=== PATIENT | male | born 1985 | race Two or more races ===

== ENCOUNTER 2023-05-29 07:58 | Inpatient (IN) | payer MEDICAID ==
[~2023-05-29] VITALS: Ht 175.3 cm; Wt 51.6 kg
[2023-05-29 08:42] LABS: Urine Bacteria NONE SEEN /hpf (None Seen); Urine Blood 1+ /uL (Negative); Urine Budding Yeast OCCASIONAL /hpf (None Seen); Urine Clarity Clear (Clear); Urine Color Colorless (Yellow); Urine Hyaline Cast FEW /lpf (0 - 2); Urine Protein, UAD 2+ (Negative); Urine Urobilinogen Normal (Negative); Urine WBC 35 /hpf (0 - 3); Urine WBC Clumps PRESENT /hpf (None Seen)
[2023-05-29 08:51] LABS: Basophils # (auto) 0.1 10 ^3/uL (0-0.2); Basophils % (auto) 1.4 % (0.0-2.0); Eosinophils # (auto) 0.1 10 ^3/uL (0-0.8); Hematocrit 27.7 % (41.0-53.0); Hemoglobin 9.1 g/dL (13.5-17.5); Lymphocytes # (auto) 1.6 10 ^3/uL (0.4-5.4); Mean Corpuscular Hemoglobin 27.7 pg (28.0-32.0); Mean Corpuscular Hgb Conc. 32.9 g/dL (32.0-36.0); Mean Corpuscular Volume 84.2 fL (80.0-100.0); Monocytes # (auto) 0.4 10 ^3/uL (0-1.3); Monocytes % (auto) 5.9 % (0.0-12.0); Neutrophils # (auto) 5.4 10 ^3/uL (1.6-8.6); Neutrophils % (auto) 70.7 % (37.0-80.0); Red Blood Cells 3.28 10^6/uL (4.5-5.90); Red Cell Distribution Width 15.6 % (11.8-14.3); White Blood Cell 7.6 10^3/uL (4.4-10.8)
[2023-05-29 09:04] LABS: Alanine Aminotransferase 43 U/L (7-40); Albumin 3.4 g/dL (3.2-4.8); Alkaline Phosphatase 109 U/L (46-116); Anion Gap 2.3 (5-15); Aspartate Aminotransferase 45 U/L (13-40); BUN/Creatinine Ratio 12.2 (10.0-20.0); Bilirubin, Total 0.4 mg/dL (0.2-1.0); Blood Urea Nitrogen 18 mg/dL (9-23); Calcium 8.5 mg/dL (8.5-10.1); Carbon Dioxide 27.7 mmol/L (20-30); Chloride 104 mmol/L (98-107); Glucose 284 mg/dL (74-106); Sodium 134 mmol/L (136-145); Total Protein 6.5 g/dL (5.7-8.2)
[2023-05-29] MEDS ORDERED: cefTRIAXone 1GM/50ML D5W 50 ML IV ONE (11:00)
[2023-05-29] MEDS ORDERED: CALCIUM GLUC 1,000mg/50ml-NS 50 ML IV ONE ×3 (11:00→15:45)
[2023-05-29] MEDS ORDERED: SODIUM BICARBONATE 8.4 % INJ 50ML VIAL IV ONE ×2 (11:00→11:17)
[2023-05-29 11:39] LABS: INR 1.11 (0.9-1.15); Partial Thromboplastin Time 31.9 SEC (24.5-34.5); Prothrombin Time 11.6 sec (9.3-11.8)
[2023-05-29 11:40] VITALS: PULSE 86
[2023-05-29] MEDS ORDERED: DEXTROSE (50%) 50ML SYRG IV PRN (12:15)
[2023-05-29] MEDS ORDERED: ACETAMINOPHEN 325 MG TAB PO PRN (12:15)
[2023-05-29] MEDS ORDERED: [UNRECOGNIZED DRUG - CODE] (12:20)
[2023-05-29] MEDS ORDERED: QUET100T47 PO ×2 (12:20)
[2023-05-29] MEDS ORDERED: INSU100I52 SC ×2 (12:20)
[2023-05-29] MEDS ORDERED: ARIP10TA29 PO ×2 (12:20)
[2023-05-29] MEDS ORDERED: GABA-339 PO ×2 (12:20)
[2023-05-29] MEDS ORDERED: metroNIDAZOLE 500MG/100ML 100 ML IV ONE (12:45)
[2023-05-29] MEDS: SODIUM CHLORIDE 0.9% 1,000 ML IV SCH ×2 (12:45→22:28)
[2023-05-29] MEDS: MORPHINE SULFATE INJ 2 MG/ml SYRG IV PRN ×2 (12:57→20:33)
[2023-05-29] MEDS: METOCLOPRAMIDE HCL 5MG/ml INJ 2ml VIAL IV PRN ×2 (13:00→17:39)
[2023-05-29] MEDS: GABAPENTIN 300 MG CAP PO SCH ×2 (14:33→22:28)
[2023-05-29] MEDS ORDERED: SODIUM BICARBONATE 8.4% INJ 50ML SYRINGE IV ONE (15:45)
[2023-05-29] MEDS ORDERED: FUROSEMIDE 20 MG/2 ML VIAL IV ONE (15:45)
[2023-05-29] MEDS ORDERED: InsuLIN REG 1unit/0.01ml Soln (100units/ml) IV ONE (15:45)
[2023-05-29] MEDS ORDERED: ALBUTEROL SULF 2.5 MG/0.5ML(0.5%) NEB SOLN NEB ONE (15:45)
[2023-05-29] MEDS ORDERED: SODIUM ZIRCONIUM CYCL 10 GM PAK PO ONE (15:45)
[2023-05-29] MEDS ORDERED: DEXTROSE (50%) 50ML SYRG IV ONE (15:45)
[2023-05-29] MEDS: HYDROcodone-ACET 5/325MG TAB PO PRN ×2 (16:08→22:28)
[2023-05-29] MEDS ORDERED: hydrALAZINE HCL 20 MG/ML VL IV PRN (16:15)
[2023-05-29] MEDS ORDERED: hydrALAZINE HCL 20 MG/ML VL ONE (16:19)
[2023-05-29] MEDS: InsuLIN REG 1unit/0.01ml Soln (100units/ml) SC SCH ×2 (16:21→22:29)
[2023-05-29] MEDS: ACCU-CHEK COMFORT CURVE STRIP VI SCH ×2 (16:21→22:28)
[2023-05-29] MEDS ORDERED: SODIUM CHLORIDE 0.9% 1,000 ML IV ONE (19:00)
[2023-05-29 19:35] VITALS: PULSE 97; RESP 15; O2SAT 98
[2023-05-29] MEDS: metroNIDAZOLE 500MG/100ML 100 ML IV SCH (22:28)
[2023-05-30] VITALS (11 sets, daily range): BP systolic 132–149; BP diastolic 83–103; PULSE 76–105; RESP 16–18; TEMP 97.4–98.3; O2SAT 98–99
[2023-05-30] MEDS: MORPHINE SULFATE INJ 2 MG/ml SYRG IV PRN ×5 (00:41→20:26)
[2023-05-30] MEDS ORDERED: PERCOT PO (01:53)
[2023-05-30] MEDS: HYDROcodone-ACET 5/325MG TAB PO PRN ×5 (03:46→22:55)
[2023-05-30] MEDS: METOCLOPRAMIDE HCL 5MG/ml INJ 2ml VIAL IV PRN ×3 (03:48→18:29)
[2023-05-30 05:39] LABS: Basophils # (auto) 0.1 10 ^3/uL (0-0.2); Eosinophils # (auto) 0 10 ^3/uL (0-0.8); Eosinophils % (auto) 0.5 % (0.0-7.0); Hematocrit 25.1 % (41.0-53.0); Hemoglobin 8.5 g/dL (13.5-17.5); Lymphocytes # (auto) 1.5 10 ^3/uL (0.4-5.4); Lymphocytes % (auto) 17.6 % (10.0-50.0); Mean Corpuscular Hemoglobin 28.1 pg (28.0-32.0); Mean Corpuscular Hgb Conc. 33.9 g/dL (32.0-36.0); Mean Corpuscular Volume 82.9 fL (80.0-100.0); Monocytes # (auto) 0.5 10 ^3/uL (0-1.3); Monocytes % (auto) 5.8 % (0.0-12.0); Neutrophils # (auto) 6.4 10 ^3/uL (1.6-8.6); Neutrophils % (auto) 75.1 % (37.0-80.0); Red Blood Cells 3.03 10^6/uL (4.5-5.90); Red Cell Distribution Width 15.6 % (11.8-14.3); White Blood Cell 8.6 10^3/uL (4.4-10.8)
[2023-05-30] MEDS: metroNIDAZOLE 500MG/100ML 100 ML IV SCH (05:40)
[2023-05-30] MEDS: GABAPENTIN 300 MG CAP PO SCH ×3 (05:40→21:55)
[2023-05-30 05:49] LABS: Alanine Aminotransferase 33 U/L (7-40); Albumin 3.1 g/dL (3.2-4.8); Alkaline Phosphatase 98 U/L (46-116); Anion Gap 5.5 (5-15); Aspartate Aminotransferase 24 U/L (13-40); BUN/Creatinine Ratio 12.9 (10.0-20.0); Bilirubin, Total 0.3 mg/dL (0.2-1.0); Blood Urea Nitrogen 17 mg/dL (9-23); Calcium 8.3 mg/dL (8.5-10.1); Carbon Dioxide 26.5 mmol/L (20-30); Chloride 108 mmol/L (98-107); Sodium 140 mmol/L (136-145)
[2023-05-30 05:50] LABS: Total Protein 5.9 g/dL (5.7-8.2)
[2023-05-30 05:55] LABS: Glucose 149 mg/dL (74-106)
[2023-05-30] MEDS: ACCU-CHEK COMFORT CURVE STRIP VI SCH ×7 (06:13→22:00)
[2023-05-30] MEDS: InsuLIN REG 1unit/0.01ml Soln (100units/ml) SC SCH ×4 (06:17→22:03)
[2023-05-30] MEDS: SODIUM CHLORIDE 0.9% 1,000 ML IV SCH ×2 (08:53→18:32)
[2023-05-30] MEDS ORDERED: cefTRIAXone 1GM/50ML D5W 50 ML IV SCH (09:00)
[2023-05-30] MEDS ORDERED: DEXTROSE (50%) 50ML SYRG IV PRN (10:00)
[2023-05-30] MEDS ORDERED: ERTAPENEM SOD INJ 1 GM in SODIUM CHL 0.9% 50 ML IV ONE (10:00)
[2023-05-30] MEDS: ENOXAPARIN SOD 40 MG/0.4 ML SYRINGE SC SCH (10:33)
[2023-05-30] MEDS: QUEtiapine FUMARATE 100 MG TAB PO SCH (10:34)
[2023-05-31] VITALS (7 sets, daily range): BP systolic 124–149; BP diastolic 77–106; PULSE 76–93; RESP 16–18; TEMP 97.4–98.4; O2SAT 97–99
[2023-05-31] MEDS: METOCLOPRAMIDE HCL 5MG/ml INJ 2ml VIAL IV PRN ×2 (00:46→06:56)
[2023-05-31] MEDS: MORPHINE SULFATE INJ 2 MG/ml SYRG IV PRN ×5 (00:48→21:27)
[2023-05-31] MEDS: SODIUM CHLORIDE 0.9% 1,000 ML IV SCH ×2 (00:53→10:31)
[2023-05-31] MEDS: GABAPENTIN 300 MG CAP PO SCH ×3 (05:08→21:38)
[2023-05-31] MEDS: ACCU-CHEK COMFORT CURVE STRIP VI SCH ×8 (06:04→21:39)
[2023-05-31] MEDS: InsuLIN REG 1unit/0.01ml Soln (100units/ml) SC SCH ×4 (06:04→21:39)
[2023-05-31 06:25] LABS: Anion Gap 3.3 (5-15); Carbon Dioxide 27.7 mmol/L (20-30); Chloride 108 mmol/L (98-107); Potassium 4.2 mmol/L (3.5-5.1); Sodium 139 mmol/L (136-145)
[2023-05-31 06:26] LABS: Calcium 7.9 mg/dL (8.5-10.1)
[2023-05-31 06:31] LABS: BUN/Creatinine Ratio 12.7 (10.0-20.0); Blood Urea Nitrogen 16 mg/dL (9-23); Glucose 80 mg/dL (74-106)
[2023-05-31] MEDS: HYDROcodone-ACET 5/325MG TAB PO PRN ×3 (06:53→17:23)
[2023-05-31 07:08] LABS: Basophils # (auto) 0.1 10 ^3/uL (0-0.2); Eosinophils # (auto) 0.1 10 ^3/uL (0-0.8); Hemoglobin 8.3 g/dL (13.5-17.5); Lymphocytes # (auto) 1.9 10 ^3/uL (0.4-5.4); Monocytes # (auto) 0.5 10 ^3/uL (0-1.3)
[2023-05-31 07:12] LABS: Basophils % (auto) 1.4 % (0.0-2.0); Eosinophils % (auto) 1.7 % (0.0-7.0); Hematocrit 24.8 % (41.0-53.0); Lymphocytes % (auto) 29.7 % (10.0-50.0); Mean Corpuscular Hemoglobin 27.6 pg (28.0-32.0); Mean Corpuscular Hgb Conc. 33.6 g/dL (32.0-36.0); Mean Corpuscular Volume 82.3 fL (80.0-100.0); Monocytes % (auto) 7.1 % (0.0-12.0); Neutrophils # (auto) 3.8 10 ^3/uL (1.6-8.6); Neutrophils % (auto) 60.1 % (37.0-80.0); Red Blood Cells 3.01 10^6/uL (4.5-5.90); Red Cell Distribution Width 15.6 % (11.8-14.3); White Blood Cell 6.4 10^3/uL (4.4-10.8)
[2023-05-31 09:44] LABS: Hepatitis B Surface Antigen Negative (Negative)
[2023-05-31] MEDS: ERTAPENEM SOD INJ 1 GM in SODIUM CHL 0.9% 50 ML IV SCH (10:00)
[2023-05-31 10:05] LABS: Hepatitis C Antibody Negative (Negative)
[2023-05-31] MEDS: ENOXAPARIN SOD 40 MG/0.4 ML SYRINGE SC SCH (10:21)
[2023-05-31] MEDS: QUEtiapine FUMARATE 100 MG TAB PO SCH (10:21)
[2023-06-01] MEDS: HYDROcodone-ACET 5/325MG TAB PO PRN ×2 (00:02→06:31)
[2023-06-01] MEDS: METOCLOPRAMIDE HCL 5MG/ml INJ 2ml VIAL IV PRN (02:26)
[2023-06-01] MEDS: MORPHINE SULFATE INJ 2 MG/ml SYRG IV PRN ×2 (02:28→09:16)
[2023-06-01 05:00] VITALS: BP 151/106; PULSE 86; RESP 19; TEMP 97.6; O2SAT 99
[2023-06-01] MEDS: GABAPENTIN 300 MG CAP PO SCH (06:31)
[2023-06-01] MEDS: ACCU-CHEK COMFORT CURVE STRIP VI SCH ×4 (06:31→12:00)
[2023-06-01] MEDS: InsuLIN REG 1unit/0.01ml Soln (100units/ml) SC SCH ×2 (06:31→12:12)
[2023-06-01 09:00] VITALS: BP 128/93; PULSE 82; RESP 16; TEMP 98; O2SAT 98
[2023-06-01] MEDS: ERTAPENEM SOD INJ 1 GM in SODIUM CHL 0.9% 50 ML IV SCH (09:15)
[2023-06-01] MEDS: ENOXAPARIN SOD 40 MG/0.4 ML SYRINGE SC SCH (09:15)
[2023-06-01] MEDS: QUEtiapine FUMARATE 100 MG TAB PO SCH (09:15)
[2023-06-01] MEDS ORDERED: FLUC200T50 PO (09:30)
[2023-06-01] MEDS ORDERED: LEVO500T91 PO (09:30)
[2023-06-01 10:00] VITALS: BP 124/69; PULSE 75; RESP 17
[2023-06-01] MEDS: SODIUM CHLORIDE 0.9% 1,000 ML IV SCH (12:40)
[2023-06-12] MEDS ORDERED: ERGO1CAP23 PO ×2 (13:54)
[2023-06-12] MEDS ORDERED: FERR1TAB36 PO ×2 (13:54)
== END 2023-06-01 13:05 | disposition home or self-care (01) | DRG 466 ==
LOC: ER 07:58 → OVERFLOW 12:16 → CENTRAL 22:27 → TELE-CENTR 05-30 17:12 → CENTRAL 05-31 10:16
PROVIDERS: ADMIT Nurse Practitioner Family; ATTEND Internal Medicine
DX: T83.511A Infection and inflammatory reaction due to indwelling urethral catheter, initial encounter (principal); E10.42 Type 1 diabetes mellitus with diabetic polyneuropathy; E44.0 Moderate protein-calorie malnutrition; I50.32 Chronic diastolic (congestive) heart failure; E86.0 Dehydration; I11.0 Hypertensive heart disease with heart failure; D64.9 Anemia, unspecified; E10.65 Type 1 diabetes mellitus with hyperglycemia; E87.5 Hyperkalemia; N39.0 Urinary tract infection, site not specified; Z79.4 Long term (current) use of insulin; Z68.1 Body mass index [BMI] 19.9 or less, adult
CPT/HCPCS: 36415; 73630; 74176; 80048; 80053; 81001; 82962; 83036; 83880; 83930; 84132; 85025; 85610; 85730; 86803; 87045; 87081; 87086; 87088; 87177; 87340; 87427; 87493; 93306; 94640; 96365; 96367; 96368; 96375; 97110; 97116; 97163; 97530; 99291; G0378; J0696; J1335; J1815; J3490

== ENCOUNTER 2023-06-04 07:10 | Emergency (ER) | payer MEDICAID ==
[~2023-06-04] VITALS: Ht 175.3 cm; Wt 52.4 kg
[~2023-06-04 07:10] MED LIST: ARIP10TA29 PO; FLUC200T50 PO; GABA-339 PO; INSU100I52 SC; LEVO500T91 PO; PERCOT PO; QUET100T47 PO; [UNRECOGNIZED DRUG - CODE]
[2023-06-04 07:23] VITALS: BP 123/89; PULSE 95; RESP 20; O2SAT 97
[2023-06-04 07:52] LABS: Urine Bacteria NONE SEEN /hpf (None Seen); Urine Blood 2+ /uL (Negative); Urine Clarity Clear (Clear); Urine Color Straw (Yellow); Urine Hyaline Cast FEW /lpf (0 - 2); Urine Protein, UAD 3+ (Negative); Urine Urobilinogen Normal (Negative); Urine WBC 11 /hpf (0 - 3)
[2023-06-04 08:28] LABS: Basophils # (auto) 0.1 10 ^3/uL (0-0.2); Eosinophils # (auto) 0.1 10 ^3/uL (0-0.8); Eosinophils % (auto) 1.2 % (0.0-7.0); Hematocrit 29.6 % (41.0-53.0); Hemoglobin 9.5 g/dL (13.5-17.5); Lymphocytes # (auto) 1.5 10 ^3/uL (0.4-5.4); Lymphocytes % (auto) 18.8 % (10.0-50.0); Mean Corpuscular Hemoglobin 26.9 pg (28.0-32.0); Mean Corpuscular Hgb Conc. 32.2 g/dL (32.0-36.0); Mean Corpuscular Volume 83.3 fL (80.0-100.0); Monocytes # (auto) 0.4 10 ^3/uL (0-1.3); Monocytes % (auto) 5.3 % (0.0-12.0); Neutrophils # (auto) 5.9 10 ^3/uL (1.6-8.6); Neutrophils % (auto) 73.7 % (37.0-80.0); Nucleated Red Blood Cells % 0.1 %; Red Blood Cells 3.55 10^6/uL (4.5-5.90); Red Cell Distribution Width 15.7 % (11.8-14.3)
[2023-06-04 08:47] LABS: Alanine Aminotransferase 66 U/L (7-40); Albumin 3.4 g/dL (3.2-4.8); Alkaline Phosphatase 121 U/L (46-116); Anion Gap 0.4 (5-15); Aspartate Aminotransferase 125 U/L (13-40); BUN/Creatinine Ratio 17.6 (10.0-20.0); Bilirubin, Total 0.6 mg/dL (0.2-1.0); Blood Urea Nitrogen 24 mg/dL (9-23); Calcium 8.9 mg/dL (8.5-10.1); Carbon Dioxide 29.6 mmol/L (20-30); Chloride 102 mmol/L (98-107); Total Protein 6.7 g/dL (5.7-8.2)
[2023-06-04 08:51] LABS: Sodium 132 mmol/L (136-145)
[2023-06-04 08:55] LABS: Glucose 407 mg/dL (74-106); Potassium 5.8 mmol/L (3.5-5.1)
[2023-06-04] MEDS ORDERED: SODIUM CHLORIDE 0.9% 1,000 ML IV ONE ×2 (11:45)
[2023-06-04] MEDS ORDERED: cefTRIAXone 1GM/50ML D5W 50 ML IV ONE (11:45)
[2023-06-04] MEDS ORDERED: InsuLIN REG 1unit/0.01ml Soln (100units/ml) IV ONE (11:45)
== END 2023-06-04 14:15 | disposition left against medical advice (07) ==
LOC: ER 07:10
DX: E11.65 Type 2 diabetes mellitus with hyperglycemia (principal); N39.0 Urinary tract infection, site not specified; E87.5 Hyperkalemia; M79.605 Pain in left leg; M79.604 Pain in right leg; I11.0 Hypertensive heart disease with heart failure; I50.9 Heart failure, unspecified; F15.90 Other stimulant use, unspecified, uncomplicated; Z79.1 Long term (current) use of non-steroidal anti-inflammatories (NSAID); Z79.4 Long term (current) use of insulin; Z79.899 Other long term (current) drug therapy
CPT/HCPCS: 36415; 80053; 81001; 83880; 85025; 87086

== ENCOUNTER 2023-06-04 15:58 | Inpatient (IN) | payer MEDICAID ==
[~2023-06-04] VITALS: Ht 175.3 cm; Wt 57.3 kg
[2023-06-04 16:42] VITALS: PULSE 87; RESP 9; O2SAT 96
[2023-06-04] MEDS ORDERED: FUROSEMIDE 20 MG/2 ML VIAL IV ONE (17:00)
[2023-06-04] MEDS ORDERED: SODIUM CHLORIDE 0.9% 1,000 ML IV ONE ×2 (17:00)
[2023-06-04] MEDS ORDERED: INSULIN LANTUS (GLARGINE) 1 /0.01ml (100units/ml) SC ONE (17:00)
[2023-06-04] MEDS ORDERED: ALBUTEROL SULF 2.5 MG/0.5ML(0.5%) NEB SOLN NEB ONE (17:00)
[2023-06-04] MEDS ORDERED: SODIUM ZIRCONIUM CYCL 10 GM PAK PO ONE (17:00)
[2023-06-04] MEDS ORDERED: CALCIUM GLUC 1,000mg/50ml-NS 50 ML IV ONE (17:00)
[2023-06-04] MEDS ORDERED: InsuLIN R (HUMAN) 100 UNITS in SODIUM CHL 0.9% 99 ML IV SCH (17:00)
[2023-06-04] MEDS ORDERED: SODIUM BICARBONATE 8.4% INJ 50ML SYRINGE IV ONE (17:00)
[2023-06-04 17:01] LABS: Base Excess 4.8 mmol/L (-2.0-2.0)
[2023-06-04 17:05] LABS: Basophils # (auto) 0.1 10 ^3/uL (0-0.2); Basophils % (auto) 0.9 % (0.0-2.0); Eosinophils # (auto) 0.1 10 ^3/uL (0-0.8); Eosinophils % (auto) 1.3 % (0.0-7.0); Hematocrit 26.1 % (41.0-53.0); Hemoglobin 8.6 g/dL (13.5-17.5); Lymphocytes % (auto) 24.9 % (10.0-50.0); Mean Corpuscular Hgb Conc. 32.7 g/dL (32.0-36.0); Mean Corpuscular Volume 82.7 fL (80.0-100.0); Monocytes # (auto) 0.6 10 ^3/uL (0-1.3); Monocytes % (auto) 7.5 % (0.0-12.0); Neutrophils # (auto) 5.2 10 ^3/uL (1.6-8.6); Neutrophils % (auto) 65.4 % (37.0-80.0); Red Blood Cells 3.16 10^6/uL (4.5-5.90); Red Cell Distribution Width 15.4 % (11.8-14.3); White Blood Cell 7.9 10^3/uL (4.4-10.8)
[2023-06-04 17:23] LABS: Alanine Aminotransferase 54 U/L (7-40); Albumin 3.3 g/dL (3.2-4.8); Alkaline Phosphatase 122 U/L (46-116); Anion Gap 1.4 (5-15); Aspartate Aminotransferase 78 U/L (13-40); BUN/Creatinine Ratio 17.6 (10.0-20.0); Blood Urea Nitrogen 24 mg/dL (9-23); Calcium 8.6 mg/dL (8.7-10.4); Carbon Dioxide 29.6 mmol/L (20-30); Chloride 101 mmol/L (98-107); Glucose 342 mg/dL (74-106); Sodium 132 mmol/L (136-145)
[2023-06-04 17:24] LABS: Bilirubin, Total 0.5 mg/dL (0.2-1.0); Total Protein 6.3 g/dL (5.7-8.2)
[2023-06-04] MEDS ORDERED: ACCU-CHEK COMFORT CURVE STRIP VI SCH ×2 (18:00→22:00)
[2023-06-04 18:25] LABS: Potassium 5.6 mmol/L (3.5-5.1)
[2023-06-04 19:20] VITALS: PULSE 102; RESP 14; O2SAT 98
[2023-06-04] MEDS ORDERED: NITROGLYCERIN 0.4 MG SL TAB SL PRN (19:45)
[2023-06-04] MEDS ORDERED: ACETAMINOPHEN 325 MG TAB PO PRN (19:45)
[2023-06-04] MEDS ORDERED: MORPHINE SULFATE INJ 2 MG/ml SYRG IV PRN (19:45)
[2023-06-04] MEDS: OXYCODONE W/ ACETAMINOPHEN 5/325MG TABLET PO PRN (21:02)
[2023-06-04] MEDS: GABAPENTIN 300 MG CAP PO SCH (23:17)
[2023-06-04] MEDS: InsuLIN REG 1unit/0.01ml Soln (100units/ml) SC SCH (23:18)
[2023-06-05] MEDS: ONDANSETRON HCL 4 MG/2 ML VIAL IV PRN ×2 (00:09→04:21)
[2023-06-05] MEDS: MORPHINE SULFATE 4 MG/ML SYR/VIAL IV PRN ×5 (00:12→21:20)
[2023-06-05] MEDS: GABAPENTIN 300 MG CAP PO SCH ×3 (07:00→21:20)
[2023-06-05 07:07] LABS: Alanine Aminotransferase 53 U/L (7-40); Alkaline Phosphatase 102 U/L (46-116); BUN/Creatinine Ratio 16.8 (10.0-20.0); Blood Urea Nitrogen 20 mg/dL (9-23); Calcium 8.7 mg/dL (8.5-10.1); Chloride 103 mmol/L (98-107); Potassium 4.3 mmol/L (3.5-5.1); Sodium 138 mmol/L (136-145)
[2023-06-05 07:09] LABS: Aspartate Aminotransferase 63 U/L (13-40); Bilirubin, Total 0.5 mg/dL (0.2-1.0); Total Protein 5.8 g/dL (5.7-8.2)
[2023-06-05 07:12] LABS: Glucose 212 mg/dL (74-106)
[2023-06-05 07:26] LABS: Basophils # (auto) 0.1 10 ^3/uL (0-0.2); Eosinophils # (auto) 0.1 10 ^3/uL (0-0.8); Hemoglobin 7.6 g/dL (13.5-17.5); Lymphocytes % (auto) 29.8 % (10.0-50.0); Monocytes # (auto) 0.5 10 ^3/uL (0-1.3)
[2023-06-05 07:27] LABS: Eosinophils % (auto) 1.4 % (0.0-7.0); Hematocrit 22.1 % (41.0-53.0); Mean Corpuscular Hemoglobin 28.3 pg (28.0-32.0); Mean Corpuscular Hgb Conc. 34.5 g/dL (32.0-36.0); Mean Corpuscular Volume 82.3 fL (80.0-100.0); Monocytes % (auto) 7.4 % (0.0-12.0); Neutrophils % (auto) 60.4 % (37.0-80.0); Nucleated Red Blood Cells % 0.1 %; Red Blood Cells 2.69 10^6/uL (4.5-5.90); Red Cell Distribution Width 15.2 % (11.8-14.3); White Blood Cell 6.6 10^3/uL (4.4-10.8)
[2023-06-05 07:35] VITALS: PULSE 81; RESP 10; O2SAT 98
[2023-06-05] MEDS: InsuLIN REG 1unit/0.01ml Soln (100units/ml) SC SCH ×4 (07:55→21:46)
[2023-06-05] MEDS ORDERED: levoFLOXacin 500MG 100 ML IV SCH (10:00)
[2023-06-05] MEDS: FLUCONAZOLE 200MG/100ML 100 ML IV SCH (10:34)
[2023-06-05] MEDS: FUROSEMIDE 20 MG/2 ML VIAL IV SCH (10:36)
[2023-06-05] MEDS: PANTOPRAZOLE 40 MG TAB PO SCH ×2 (10:37→21:20)
[2023-06-05] MEDS: QUEtiapine FUMARATE 100 MG TAB PO SCH (10:37)
[2023-06-05] MEDS: INSULIN LANTUS (GLARGINE) 1 /0.01ml (100units/ml) SC SCH (10:41)
[2023-06-05] MEDS ORDERED: cefTRIAXone 1GM/50ML D5W 50 ML IV ONE (13:15)
[2023-06-05] MEDS ORDERED: LACTULOSE 20Gm/30ML SOLN PO ONE (13:15)
[2023-06-05 13:46] LABS: Urine Bacteria NONE SEEN /hpf (None Seen); Urine Blood 1+ /uL (Negative); Urine Clarity Clear (Clear); Urine Protein, UAD 2+ (Negative); Urine Specific Gravity 1.007 (1.001-1.035); Urine Urobilinogen Normal (Negative); Urine WBC 13 /hpf (0 - 3)
[2023-06-05 13:59] LABS: Urine Color Straw (Yellow)
[2023-06-05 14:03] LABS: Amphetamine Screen, Urine Neg (NEGATIVE); Barbiturate Scree,Urine Neg (NEGATIVE); Benzodiazephine Screen, Urine Neg (NEGATIVE); Cannabinoid Screen, Urine Pos (NEGATIVE); Cocaine Screen, Urine Neg (NEGATIVE); Opiate Scree,Urine Neg (NEGATIVE); Phencyclidine Screen, Urine Neg (NEGATIVE)
[2023-06-05 14:44] LABS: Thyroid Stimulating Hormone 3.92 uIU/mL (0.55-4.78)
[2023-06-05 14:46] LABS: % Iron Saturation 12.8 % (20-55)
[2023-06-05] MEDS ORDERED: NOREPINEPHRINE 8 MG/250ML KIT 250 ML IV SCH (15:00)
[2023-06-05] MEDS ORDERED: NOREPINEPHRINE 8 MG/250ML KIT 250 ML IV ONE (15:03)
[2023-06-05] MEDS ORDERED: SODIUM CHLORIDE 0.9% 500 ML IV ONE (15:30)
[2023-06-05] MEDS: DEXTROSE (50%) 50ML SYRG IV PRN (19:42)
[2023-06-05 20:58] VITALS: PULSE 76; RESP 18; O2SAT 96
[2023-06-05 22:00] VITALS: BP 109/70; PULSE 81; RESP 20; O2SAT 99
[2023-06-06] VITALS (9 sets, daily range): BP systolic 82–137; BP diastolic 50–97; PULSE 80–97; RESP 18–20; TEMP 97.5–99.6; O2SAT 94–99
[2023-06-06] MEDS: OXYCODONE W/ ACETAMINOPHEN 5/325MG TABLET PO PRN ×3 (02:20→18:46)
[2023-06-06] MEDS: MORPHINE SULFATE 4 MG/ML SYR/VIAL IV PRN ×2 (04:37→10:01)
[2023-06-06 04:49] LABS: Basophils # (auto) 0 10 ^3/uL (0-0.2); Basophils % (auto) 0.4 % (0.0-2.0); Eosinophils # (auto) 0.1 10 ^3/uL (0-0.8); Hemoglobin 8.3 g/dL (13.5-17.5); Lymphocytes # (auto) 0.4 10 ^3/uL (0.4-5.4); Monocytes # (auto) 0.4 10 ^3/uL (0-1.3)
[2023-06-06 04:52] LABS: Eosinophils % (auto) 0.8 % (0.0-7.0); Hematocrit 24.7 % (41.0-53.0); Lymphocytes % (auto) 4.8 % (10.0-50.0); Mean Corpuscular Hgb Conc. 33.7 g/dL (32.0-36.0); Mean Corpuscular Volume 83.1 fL (80.0-100.0); Monocytes % (auto) 5.1 % (0.0-12.0); Neutrophils # (auto) 7.3 10 ^3/uL (1.6-8.6); Neutrophils % (auto) 88.9 % (37.0-80.0); Red Blood Cells 2.97 10^6/uL (4.5-5.90); Red Cell Distribution Width 15.2 % (11.8-14.3); White Blood Cell 8.3 10^3/uL (4.4-10.8)
[2023-06-06 05:06] LABS: Alanine Aminotransferase 46 U/L (7-40); Alkaline Phosphatase 96 U/L (46-116); Anion Gap 2.7 (5-15); Aspartate Aminotransferase 44 U/L (13-40); BUN/Creatinine Ratio 17.8 (10.0-20.0); Blood Urea Nitrogen 21 mg/dL (9-23); Calcium 8.2 mg/dL (8.5-10.1); Carbon Dioxide 28.3 mmol/L (20-30); Chloride 106 mmol/L (98-107); Cholesterol 150 mg/dL (< 200); Glucose 82 mg/dL (74-106); HDL Cholesterol 67 mg/dL (40-59); LDL Cholesterol 65 mg/dL (< 100); Magnesium 1.6 mg/dL (1.6-2.6); Potassium 4.8 mmol/L (3.5-5.1); Sodium 137 mmol/L (136-145); Triglycerides 52 mg/dL (< 150)
[2023-06-06 05:07] LABS: Bilirubin, Total 0.4 mg/dL (0.2-1.0); Total Protein 5.8 g/dL (5.7-8.2)
[2023-06-06] MEDS: GABAPENTIN 300 MG CAP PO SCH ×3 (06:25→21:25)
[2023-06-06] MEDS: InsuLIN REG 1unit/0.01ml Soln (100units/ml) SC SCH ×4 (06:27→21:26)
[2023-06-06] MEDS: ONDANSETRON HCL 4 MG/2 ML VIAL IV PRN ×2 (09:59→23:25)
[2023-06-06] MEDS: cefTRIAXone 1GM/50ML D5W 50 ML IV SCH (09:59)
[2023-06-06] MEDS: PANTOPRAZOLE 40 MG TAB PO SCH ×3 (10:00→21:26)
[2023-06-06] MEDS: FUROSEMIDE 20 MG/2 ML VIAL IV SCH (10:00)
[2023-06-06] MEDS: QUEtiapine FUMARATE 100 MG TAB PO SCH (10:01)
[2023-06-06] MEDS ORDERED: MAGNESIUM OXIDE 400 MG TAB PO ONE (11:00)
[2023-06-06] MEDS: FLUCONAZOLE 200MG/100ML 100 ML IV SCH (11:24)
[2023-06-06] MEDS: INSULIN LANTUS (GLARGINE) 1 /0.01ml (100units/ml) SC SCH (12:08)
[2023-06-06] MEDS ORDERED: SODIUM CHLORIDE 0.9% 1,000 ML IV ONE (14:30)
[2023-06-06] MEDS ORDERED: ALBUMIN 25% 100 ML IV ONE (14:30)
[2023-06-06] MEDS: MAGNESIUM OXIDE 400 MG TAB PO SCH (21:26)
[2023-06-07] VITALS (9 sets, daily range): BP systolic 99–121; BP diastolic 63–80; PULSE 71–96; RESP 18–21; TEMP 97.4–98.2; O2SAT 95–100
[2023-06-07] MEDS: GABAPENTIN 300 MG CAP PO SCH ×3 (06:08→21:06)
[2023-06-07] MEDS: InsuLIN REG 1unit/0.01ml Soln (100units/ml) SC SCH ×4 (06:09→21:06)
[2023-06-07] MEDS: OXYCODONE W/ ACETAMINOPHEN 5/325MG TABLET PO PRN ×2 (06:50→22:26)
[2023-06-07] MEDS: cefTRIAXone 1GM/50ML D5W 50 ML IV SCH (08:19)
[2023-06-07] MEDS: MAGNESIUM OXIDE 400 MG TAB PO SCH ×2 (10:28→21:05)
[2023-06-07] MEDS: FLUCONAZOLE 100 MG TAB PO SCH (10:28)
[2023-06-07] MEDS: PANTOPRAZOLE 40 MG TAB PO SCH ×2 (10:28→21:06)
[2023-06-07] MEDS: QUEtiapine FUMARATE 100 MG TAB PO SCH (10:28)
[2023-06-07] MEDS: FUROSEMIDE 20 MG/2 ML VIAL IV SCH (10:29)
[2023-06-07] MEDS: INSULIN LANTUS (GLARGINE) 1 /0.01ml (100units/ml) SC SCH (10:49)
[2023-06-07 15:18] LABS: Hepatitis B Surface Antigen Negative (Negative)
[2023-06-07 15:39] LABS: Hepatitis C Antibody Negative (Negative)
[2023-06-07] MEDS ORDERED: SODIUM FERR GLUC 62.5MG/5ML 125 MG in SODIUM CHL 0.9% 100 ML IV ONE (17:15)
[2023-06-08] VITALS (7 sets, daily range): BP systolic 117–154; BP diastolic 79–97; PULSE 75–94; RESP 16–21; TEMP 36.3; O2SAT 96–100
[2023-06-08] MEDS: DEXTROSE (50%) 50ML SYRG IV PRN ×2 (05:18→07:05)
[2023-06-08] MEDS: GABAPENTIN 300 MG CAP PO SCH ×3 (05:22→21:18)
[2023-06-08 06:07] LABS: Anion Gap 2 (5-15); Carbon Dioxide 30 mmol/L (20-30); Chloride 109 mmol/L (98-107); Potassium 5.3 mmol/L (3.5-5.1); Sodium 141 mmol/L (136-145)
[2023-06-08 06:08] LABS: Calcium 8.7 mg/dL (8.7-10.4)
[2023-06-08 06:13] LABS: BUN/Creatinine Ratio 13.3 (10.0-20.0); Blood Urea Nitrogen 22 mg/dL (9-23); Glucose 52 mg/dL (74-106)
[2023-06-08] MEDS: InsuLIN REG 1unit/0.01ml Soln (100units/ml) SC SCH ×4 (06:27→21:27)
[2023-06-08 06:42] LABS: Basophils # (auto) 0 10 ^3/uL (0-0.2); Basophils % (auto) 0.4 % (0.0-2.0); Eosinophils # (auto) 0.2 10 ^3/uL (0-0.8); Eosinophils % (auto) 2.1 % (0.0-7.0); Hematocrit 26.4 % (41.0-53.0); Hemoglobin 8.7 g/dL (13.5-17.5); Lymphocytes # (auto) 1.4 10 ^3/uL (0.4-5.4); Lymphocytes % (auto) 14.4 % (10.0-50.0); Mean Corpuscular Hemoglobin 27.8 pg (28.0-32.0); Mean Corpuscular Hgb Conc. 33.1 g/dL (32.0-36.0); Monocytes # (auto) 0.6 10 ^3/uL (0-1.3); Monocytes % (auto) 6.1 % (0.0-12.0); Neutrophils # (auto) 7.5 10 ^3/uL (1.6-8.6); Nucleated Red Blood Cells % 0.1 %; Red Blood Cells 3.14 10^6/uL (4.5-5.90); Red Cell Distribution Width 15.8 % (11.8-14.3); White Blood Cell 9.7 10^3/uL (4.4-10.8)
[2023-06-08] MEDS ORDERED: OMNIPAQUE 12mg/ml 500ml ORAL SOLUTION PO ONE (08:25)
[2023-06-08] MEDS: cefTRIAXone 1GM/50ML D5W 50 ML IV SCH (08:54)
[2023-06-08] MEDS: MAGNESIUM OXIDE 400 MG TAB PO SCH ×2 (08:56→21:18)
[2023-06-08] MEDS: PANTOPRAZOLE 40 MG TAB PO SCH ×2 (08:56→21:18)
[2023-06-08] MEDS: QUEtiapine FUMARATE 100 MG TAB PO SCH (08:56)
[2023-06-08] MEDS: FLUCONAZOLE 100 MG TAB PO SCH (08:57)
[2023-06-08] MEDS: INSULIN LANTUS (GLARGINE) 1 /0.01ml (100units/ml) SC SCH (08:57)
[2023-06-08] MEDS: OXYCODONE W/ ACETAMINOPHEN 5/325MG TABLET PO PRN ×2 (10:28→21:29)
[2023-06-08] MEDS ORDERED: HYDROmorphone HCL 2 MG/ML VL/or syr IV ONE (11:15)
[2023-06-08] MEDS ORDERED: IRON SUCROSE COMPLEX 200 MG in SODIUM CHL 0.9% 100 ML IV SCH (12:00)
[2023-06-08] MEDS: SODIUM FERR GLUC 62.5MG/5ML 125 MG in SODIUM CHL 0.9% 100 ML IV SCH (13:04)
[2023-06-08] MEDS: SODIUM CHLORIDE 0.9% 1,000 ML IV SCH ×2 (13:11→20:00)
[2023-06-08] MEDS ORDERED: IOHEXOL 300 MG/ML 100ML BOTTLE IJ ONE (14:11)
[2023-06-09] VITALS (8 sets, daily range): BP systolic 99–154; BP diastolic 66–101; PULSE 78–98; RESP 14–20; TEMP 36.4; O2SAT 95–100
[2023-06-09] MEDS: SODIUM CHLORIDE 0.9% 1,000 ML IV SCH ×3 (04:00→20:00)
[2023-06-09] MEDS: MORPHINE SULFATE INJ 2 MG/ml SYRG IV PRN ×4 (04:49→23:48)
[2023-06-09 05:48] LABS: Basophils # (auto) 0.1 10 ^3/uL (0-0.2); Basophils % (auto) 0.6 % (0.0-2.0); Eosinophils # (auto) 0.2 10 ^3/uL (0-0.8); Eosinophils % (auto) 1.7 % (0.0-7.0); Hematocrit 27.5 % (41.0-53.0); Hemoglobin 8.7 g/dL (13.5-17.5); Lymphocytes # (auto) 1.6 10 ^3/uL (0.4-5.4); Lymphocytes % (auto) 13.1 % (10.0-50.0); Mean Corpuscular Hemoglobin 27.1 pg (28.0-32.0); Mean Corpuscular Hgb Conc. 31.7 g/dL (32.0-36.0); Mean Corpuscular Volume 85.4 fL (80.0-100.0); Monocytes # (auto) 0.8 10 ^3/uL (0-1.3); Monocytes % (auto) 6.8 % (0.0-12.0); Neutrophils # (auto) 9.7 10 ^3/uL (1.6-8.6); Neutrophils % (auto) 77.8 % (37.0-80.0); Red Blood Cells 3.22 10^6/uL (4.5-5.90); Red Cell Distribution Width 15.9 % (11.8-14.3); White Blood Cell 12.5 10^3/uL (4.4-10.8)
[2023-06-09 05:52] LABS: Calcium 8.7 mg/dL (8.7-10.4); Chloride 104 mmol/L (98-107)
[2023-06-09 05:53] LABS: Anion Gap 2 (5-15); Carbon Dioxide 29 mmol/L (20-30)
[2023-06-09 05:59] LABS: BUN/Creatinine Ratio 12.7 (10.0-20.0); Blood Urea Nitrogen 20 mg/dL (9-23)
[2023-06-09 06:16] LABS: Sodium 135 mmol/L (136-145)
[2023-06-09 06:17] LABS: Glucose 161 mg/dL (74-106)
[2023-06-09 06:18] LABS: Potassium 6.7 mmol/L (3.5-5.1)
[2023-06-09] MEDS: GABAPENTIN 300 MG CAP PO SCH ×3 (06:27→21:24)
[2023-06-09] MEDS: InsuLIN REG 1unit/0.01ml Soln (100units/ml) SC SCH ×4 (06:32→21:47)
[2023-06-09] MEDS ORDERED: SODIUM ZIRCONIUM CYCL 10 GM PAK PO ONE (08:00)
[2023-06-09] MEDS ORDERED: InsuLIN REG 1unit/0.01ml Soln (100units/ml) IV ONE ×2 (08:00→11:00)
[2023-06-09] MEDS: FLUCONAZOLE 100 MG TAB PO SCH (09:09)
[2023-06-09] MEDS: QUEtiapine FUMARATE 100 MG TAB PO SCH (09:09)
[2023-06-09] MEDS: MAGNESIUM OXIDE 400 MG TAB PO SCH ×2 (09:09→21:24)
[2023-06-09] MEDS: PANTOPRAZOLE 40 MG TAB PO SCH ×2 (09:09→21:24)
[2023-06-09] MEDS: cefTRIAXone 1GM/50ML D5W 50 ML IV SCH (09:10)
[2023-06-09] MEDS: INSULIN LANTUS (GLARGINE) 1 /0.01ml (100units/ml) SC SCH (09:17)
[2023-06-09] MEDS ORDERED: FUROSEMIDE 40 MG/4 ML VIAL IV ONE (11:00)
[2023-06-09] MEDS ORDERED: SODIUM BICARBONATE 8.4% INJ 50ML SYRINGE IV ONE (11:00)
[2023-06-09] MEDS ORDERED: CALCIUM GLUC 1,000mg/50ml-NS 50 ML IV ONE (11:00)
[2023-06-09] MEDS ORDERED: ALBUTEROL SULF 2.5 MG/0.5ML(0.5%) NEB SOLN NEB ONE (11:00)
[2023-06-09] MEDS ORDERED: DEXTROSE (50%) 50ML SYRG IV ONE (11:00)
[2023-06-09] MEDS ORDERED: ERGOCALCIFEROL 50,000 UNIT(1.25MG) CAP PO SCH (12:00)
[2023-06-09] MEDS: OXYCODONE W/ ACETAMINOPHEN 5/325MG TABLET PO PRN (12:55)
[2023-06-09] MEDS: MAGNESIUM SULFATE 1GM/100ML 100 ML IV SCH ×2 (12:56→14:03)
[2023-06-09] MEDS ORDERED: SODIUM ZIRCONIUM CYCL 10 GM PAK PO SCH (14:00)
[2023-06-09] MEDS: SODIUM FERR GLUC 62.5MG/5ML 125 MG in SODIUM CHL 0.9% 100 ML IV SCH (15:33)
[2023-06-09] MEDS: SODIUM ZIRCONIUM CYCL 10 GM PAK PO SCH (23:47)
[2023-06-10] VITALS (7 sets, daily range): BP systolic 124–149; BP diastolic 84–97; PULSE 87–99; RESP 14–17; TEMP 97.3–98.1; O2SAT 97–99
[2023-06-10] MEDS: OXYCODONE W/ ACETAMINOPHEN 5/325MG TABLET PO PRN ×3 (02:14→22:45)
[2023-06-10] MEDS: SODIUM CHLORIDE 0.9% 1,000 ML IV SCH ×2 (05:06→12:14)
[2023-06-10] MEDS: GABAPENTIN 300 MG CAP PO SCH ×3 (05:37→22:05)
[2023-06-10] MEDS: InsuLIN REG 1unit/0.01ml Soln (100units/ml) SC SCH ×4 (06:16→22:00)
[2023-06-10] MEDS: MORPHINE SULFATE INJ 2 MG/ml SYRG IV PRN ×2 (06:57→14:27)
[2023-06-10] MEDS: QUEtiapine FUMARATE 100 MG TAB PO SCH (09:09)
[2023-06-10] MEDS: PANTOPRAZOLE 40 MG TAB PO SCH ×2 (09:09→22:05)
[2023-06-10] MEDS: FLUCONAZOLE 100 MG TAB PO SCH (09:10)
[2023-06-10] MEDS: cefTRIAXone 1GM/50ML D5W 50 ML IV SCH (09:11)
[2023-06-10] MEDS: MAGNESIUM OXIDE 400 MG TAB PO SCH ×2 (09:11→22:05)
[2023-06-10] MEDS: SODIUM ZIRCONIUM CYCL 10 GM PAK PO SCH ×2 (10:28→17:42)
[2023-06-10] MEDS: INSULIN LANTUS (GLARGINE) 1 /0.01ml (100units/ml) SC SCH (10:41)
[2023-06-10 11:51] LABS: Basophils # (auto) 0.1 10 ^3/uL (0-0.2); Eosinophils # (auto) 0.1 10 ^3/uL (0-0.8); Hemoglobin 7.9 g/dL (13.5-17.5)
[2023-06-10 11:54] LABS: Basophils % (auto) 0.9 % (0.0-2.0); Eosinophils % (auto) 1.5 % (0.0-7.0); Hematocrit 24.2 % (41.0-53.0); Lymphocytes # (auto) 1.3 10 ^3/uL (0.4-5.4); Lymphocytes % (auto) 18.5 % (10.0-50.0); Mean Corpuscular Hgb Conc. 32.8 g/dL (32.0-36.0); Mean Corpuscular Volume 82.6 fL (80.0-100.0); Monocytes # (auto) 0.5 10 ^3/uL (0-1.3); Monocytes % (auto) 6.5 % (0.0-12.0); Neutrophils # (auto) 5.3 10 ^3/uL (1.6-8.6); Neutrophils % (auto) 72.6 % (37.0-80.0); Red Blood Cells 2.94 10^6/uL (4.5-5.90); Red Cell Distribution Width 15.7 % (11.8-14.3); White Blood Cell 7.2 10^3/uL (4.4-10.8)
[2023-06-10 12:03] LABS: Chloride 103 mmol/L (98-107); Sodium 137 mmol/L (136-145)
[2023-06-10 12:04] LABS: Anion Gap 2 (5-15); Calcium 8.5 mg/dL (8.7-10.4); Carbon Dioxide 32 mmol/L (20-30)
[2023-06-10 12:09] LABS: Blood Urea Nitrogen 24 mg/dL (9-23); Glucose 71 mg/dL (74-106)
[2023-06-10 12:10] LABS: Potassium 5.8 mmol/L (3.5-5.1)
[2023-06-10] MEDS ORDERED: SODIUM ZIRCONIUM CYCL 10 GM PAK PO ONE (12:30)
[2023-06-10] MEDS: SODIUM FERR GLUC 62.5MG/5ML 125 MG in SODIUM CHL 0.9% 100 ML IV SCH (13:20)
[2023-06-10] MEDS: DEXTROSE (50%) 50ML SYRG IV PRN (15:03)
[2023-06-10] MEDS: D5W/SOD CHLO 0.9% 1,000 ML IV SCH (16:30)
[2023-06-10 17:04] LABS: Alanine Aminotransferase 29 U/L (7-40); Albumin 3.2 g/dL (3.2-4.8); Alkaline Phosphatase 99 U/L (46-116); Anion Gap 4 (5-15); Aspartate Aminotransferase 20 U/L (13-40); BUN/Creatinine Ratio 14.7 (10.0-20.0); Bilirubin, Total 0.3 mg/dL (0.2-1.0); Blood Urea Nitrogen 25 mg/dL (9-23); Calcium 8.3 mg/dL (8.7-10.4); Carbon Dioxide 29 mmol/L (20-30); Chloride 103 mmol/L (98-107); Glucose 112 mg/dL (74-106); Potassium 5.4 mmol/L (3.5-5.1); Sodium 136 mmol/L (136-145); Total Protein 5.9 g/dL (5.7-8.2)
[2023-06-11] VITALS (7 sets, daily range): BP systolic 131–154; BP diastolic 93–103; PULSE 88–100; RESP 17–20; TEMP 97.6–98.5; O2SAT 98–99
[2023-06-11] MEDS: D5W/SOD CHLO 0.9% 1,000 ML IV SCH ×4 (00:37→23:41)
[2023-06-11] MEDS: SODIUM ZIRCONIUM CYCL 10 GM PAK PO SCH ×3 (00:45→17:17)
[2023-06-11] MEDS: MORPHINE SULFATE INJ 2 MG/ml SYRG IV PRN ×2 (03:45→09:23)
[2023-06-11] MEDS: ONDANSETRON HCL 4 MG/2 ML VIAL IV PRN ×2 (05:10→17:24)
[2023-06-11] MEDS: GABAPENTIN 300 MG CAP PO SCH ×3 (06:00→21:13)
[2023-06-11 06:33] LABS: Anion Gap 3 (5-15); Carbon Dioxide 30 mmol/L (20-30); Chloride 105 mmol/L (98-107); Potassium 5.1 mmol/L (3.5-5.1); Sodium 138 mmol/L (136-145)
[2023-06-11 06:35] LABS: Calcium 8.3 mg/dL (8.7-10.4)
[2023-06-11 06:39] LABS: BUN/Creatinine Ratio 10.1 (10.0-20.0); Blood Urea Nitrogen 20 mg/dL (9-23); Glucose 89 mg/dL (74-106)
[2023-06-11] MEDS: InsuLIN REG 1unit/0.01ml Soln (100units/ml) SC SCH ×4 (06:41→21:26)
[2023-06-11] MEDS: cefTRIAXone 1GM/50ML D5W 50 ML IV SCH (09:13)
[2023-06-11] MEDS: QUEtiapine FUMARATE 100 MG TAB PO SCH (09:15)
[2023-06-11] MEDS: PANTOPRAZOLE 40 MG TAB PO SCH ×2 (09:15→21:14)
[2023-06-11] MEDS: MAGNESIUM OXIDE 400 MG TAB PO SCH ×2 (09:15→21:13)
[2023-06-11] MEDS: FLUCONAZOLE 100 MG TAB PO SCH (09:22)
[2023-06-11] MEDS: OXYCODONE W/ ACETAMINOPHEN 5/325MG TABLET PO PRN ×2 (11:24→17:17)
[2023-06-11 12:04] LABS: Urine Bacteria NONE SEEN /hpf (None Seen); Urine Blood 2+ /uL (Negative); Urine Clarity Clear (Clear); Urine Color Colorless (Yellow); Urine Protein, UAD 2+ (Negative); Urine Specific Gravity 1.011 (1.001-1.035); Urine Urobilinogen Normal (Negative); Urine WBC 6 /hpf (0 - 3); Urine pH 7.5 (5.0-8.0)
[2023-06-11] MEDS: SODIUM FERR GLUC 62.5MG/5ML 125 MG in SODIUM CHL 0.9% 100 ML IV SCH (12:19)
[2023-06-11 13:48] LABS: Creatinine, Urine 25.2 mg/dL (30.0-125.0); Protein, Urine 125.4 mg/dL (0.0-11.9); Urine Protein/Creatinine Ratio 4.98
[2023-06-11] MEDS ORDERED: LACTULOSE 20Gm/30ML SOLN PO ONE (18:15)
[2023-06-12 05:00] VITALS: BP 151/99; PULSE 89; RESP 22; TEMP 98.4; O2SAT 98
[2023-06-12] MEDS: GABAPENTIN 300 MG CAP PO SCH ×2 (06:27→15:32)
[2023-06-12] MEDS: OXYCODONE W/ ACETAMINOPHEN 5/325MG TABLET PO PRN (06:27)
[2023-06-12] MEDS: ONDANSETRON HCL 4 MG/2 ML VIAL IV PRN (06:28)
[2023-06-12 06:39] LABS: Calcium 8.1 mg/dL (8.7-10.4); Chloride 106 mmol/L (98-107); Sodium 138 mmol/L (136-145)
[2023-06-12 06:40] LABS: Anion Gap 3 (5-15); Carbon Dioxide 29 mmol/L (20-30)
[2023-06-12] MEDS: InsuLIN REG 1unit/0.01ml Soln (100units/ml) SC SCH ×2 (06:44→13:42)
[2023-06-12 06:46] LABS: Blood Urea Nitrogen 20 mg/dL (9-23); Glucose 189 mg/dL (74-106)
[2023-06-12 06:53] LABS: Basophils # (auto) 0.1 10 ^3/uL (0-0.2); Eosinophils # (auto) 0.2 10 ^3/uL (0-0.8); Eosinophils % (auto) 2.8 % (0.0-7.0); Hemoglobin 8.3 g/dL (13.5-17.5); Lymphocytes # (auto) 1.6 10 ^3/uL (0.4-5.4); Monocytes # (auto) 0.6 10 ^3/uL (0-1.3); Nucleated Red Blood Cells % 0.1 %
[2023-06-12 06:57] LABS: Lymphocytes % (auto) 23.1 % (10.0-50.0); Mean Corpuscular Hemoglobin 27.7 pg (28.0-32.0); Mean Corpuscular Hgb Conc. 33.2 g/dL (32.0-36.0); Mean Corpuscular Volume 83.6 fL (80.0-100.0); Monocytes % (auto) 8.6 % (0.0-12.0); Neutrophils # (auto) 4.3 10 ^3/uL (1.6-8.6); Neutrophils % (auto) 64.5 % (37.0-80.0); Red Blood Cells 2.99 10^6/uL (4.5-5.90); Red Cell Distribution Width 15.2 % (11.8-14.3); White Blood Cell 6.7 10^3/uL (4.4-10.8)
[2023-06-12] MEDS: D5W/SOD CHLO 0.9% 1,000 ML IV SCH (08:00)
[2023-06-12 08:20] VITALS: PULSE 88
[2023-06-12 08:30] VITALS: O2SAT 98
[2023-06-12 08:59] VITALS: BP 145/100; PULSE 96; RESP 18; TEMP 97.8; O2SAT 98
[2023-06-12] MEDS: PANTOPRAZOLE 40 MG TAB PO SCH (10:16)
[2023-06-12] MEDS: QUEtiapine FUMARATE 100 MG TAB PO SCH (10:16)
[2023-06-12] MEDS: FLUCONAZOLE 100 MG TAB PO SCH (10:16)
[2023-06-12] MEDS: cefTRIAXone 1GM/50ML D5W 50 ML IV SCH (10:17)
[2023-06-12] MEDS: MAGNESIUM OXIDE 400 MG TAB PO SCH (10:17)
[2023-06-12] MEDS: SODIUM FERR GLUC 62.5MG/5ML 125 MG in SODIUM CHL 0.9% 100 ML IV SCH (12:00)
[2023-06-12 13:00] VITALS: BP 123/84; PULSE 95; RESP 18; TEMP 97.6; O2SAT 98
[2023-06-12] MEDS ORDERED: ERGO1CAP23 PO (13:54)
[2023-06-12] MEDS ORDERED: FERR1TAB36 PO (13:54)
== END 2023-06-12 16:30 | disposition home or self-care (01) | DRG 48 ==
LOC: ER 15:58 → TELE 19:52 → TELE-WESTW 06-05 20:20
PROVIDERS: ADMIT Nurse Practitioner Family; ATTEND Internal Medicine
DX: E10.42 Type 1 diabetes mellitus with diabetic polyneuropathy (principal); N17.0 Acute kidney failure with tubular necrosis; E44.0 Moderate protein-calorie malnutrition; I13.0 Hypertensive heart and chronic kidney disease with heart failure and stage 1 through stage 4 chronic kidney disease, or unspecified chronic kidney disease; E10.22 Type 1 diabetes mellitus with diabetic chronic kidney disease; K92.2 Gastrointestinal hemorrhage, unspecified; I95.9 Hypotension, unspecified; D50.9 Iron deficiency anemia, unspecified; D64.9 Anemia, unspecified; R80.9 Proteinuria, unspecified; E86.0 Dehydration; R74.01 Elevation of levels of liver transaminase levels; M79.89 Other specified soft tissue disorders; E10.65 Type 1 diabetes mellitus with hyperglycemia; E87.5 Hyperkalemia; E55.9 Vitamin D deficiency, unspecified; N18.9 Chronic kidney disease, unspecified; Z79.4 Long term (current) use of insulin; Z68.1 Body mass index [BMI] 19.9 or less, adult; M21.379 Foot drop, unspecified foot; Z83.3 Family history of diabetes mellitus; Z86.19 Personal history of other infectious and parasitic diseases; Z91.199 Patient's noncompliance with other medical treatment and regimen due to unspecified reason
CPT/HCPCS: 36415; 36600; 71045; 74018; 74177; 76705; 80048; 80053; 80061; 80307; 81001; 82010; 82270; 82306; 82570; 82607; 82728; 82746; 82805; 82962; 83540; 83550; 83605; 83615; 83735; 83935; 84132; 84156; 84300; 84443; 85025; 85045; 86703; 86803; 87081; 87086; 87340; 93970; 94640; 97110; 97116; 97163; 97530; G0378; J0696; J1450; J1756; J1815; J1956; J2405; J7042; P9047

== ENCOUNTER 2023-06-17 04:32 | Inpatient (IN) | payer MEDICAID ==
[~2023-06-17] VITALS: Ht 175.3 cm; Wt 50.0 kg
[~2023-06-17 04:32] MED LIST changes: +ERGO1CAP23 PO; +FERR1TAB36 PO
[2023-06-17 05:11] LABS: Urine Bacteria NONE SEEN /hpf (None Seen); Urine Blood 3+ /uL (Negative); Urine Clarity HAZY (Clear); Urine Color Red (Yellow); Urine Protein, UAD 3+ (Negative); Urine Specific Gravity 1.015 (1.001-1.035); Urine Urobilinogen Normal (Negative); Urine WBC 592 /hpf (0 - 3); Urine pH 6.5 (5.0-8.0)
[2023-06-17 05:15] LABS: Basophils # (auto) 0.1 10 ^3/uL (0-0.2); Basophils % (auto) 1.2 % (0.0-2.0); Monocytes # (auto) 0.6 10 ^3/uL (0-1.3); Neutrophils # (auto) 3.2 10 ^3/uL (1.6-8.6)
[2023-06-17 05:18] LABS: Eosinophils # (auto) 0.1 10 ^3/uL (0-0.8); Eosinophils % (auto) 0.9 % (0.0-7.0); Hematocrit 25.2 % (41.0-53.0); Hemoglobin 8.3 g/dL (13.5-17.5); Lymphocytes # (auto) 1.8 10 ^3/uL (0.4-5.4); Lymphocytes % (auto) 31.1 % (10.0-50.0); Mean Corpuscular Hemoglobin 27.8 pg (28.0-32.0); Mean Corpuscular Hgb Conc. 33.2 g/dL (32.0-36.0); Mean Corpuscular Volume 83.9 fL (80.0-100.0); Monocytes % (auto) 10.2 % (0.0-12.0); Neutrophils % (auto) 56.6 % (37.0-80.0); Nucleated Red Blood Cells % 0.2 %; Red Cell Distribution Width 15.4 % (11.8-14.3); White Blood Cell 5.7 10^3/uL (4.4-10.8)
[2023-06-17 05:35] LABS: Alanine Aminotransferase 36 U/L (7-40); Albumin 3.4 g/dL (3.2-4.8); Alkaline Phosphatase 134 U/L (46-116); Anion Gap 2 (5-15); Aspartate Aminotransferase 31 U/L (13-40); BUN/Creatinine Ratio 21.2 (10.0-20.0); Blood Urea Nitrogen 35 mg/dL (9-23); Calcium 8.4 mg/dL (8.7-10.4); Carbon Dioxide 29 mmol/L (20-30); Chloride 103 mmol/L (98-107); Glucose 227 mg/dL (74-106); Lipase 36 U/L (12-53); Sodium 134 mmol/L (136-145)
[2023-06-17 05:36] LABS: Bilirubin, Total 0.3 mg/dL (0.2-1.0); Total Protein 6.7 g/dL (5.7-8.2)
[2023-06-17 07:46] VITALS: PULSE 83; RESP 18; O2SAT 98
[2023-06-17] MEDS ORDERED: HYDROcodone-ACET 10/325MG TAB PO ONE (09:15)
[2023-06-17] MEDS ORDERED: PIPERACILLIN-TAZOB 3.375GM 100 ML IV ONE (09:45)
[2023-06-17] MEDS ORDERED: ACETAMINOPHEN 325 MG TAB PO PRN (11:30)
[2023-06-17] MEDS ORDERED: DEXTROSE (50%) 50ML SYRG IV PRN (11:45)
[2023-06-17] MEDS ORDERED: MORPHINE SULFATE 4 MG/ML SYR/VIAL IV ONE (12:15)
[2023-06-17] MEDS ORDERED: ONDANSETRON HCL 4 MG/2 ML VIAL IV ONE (12:15)
[2023-06-17] MEDS: SODIUM CHLORIDE 0.9% 1,000 ML IV SCH (12:16)
[2023-06-17] MEDS ORDERED: ERGOCALCIFEROL 50,000 UNIT(1.25MG) CAP PO SCH (12:45)
[2023-06-17] MEDS: PIPERACILLIN-TAZOB 3.375GM 100 ML IV SCH ×2 (13:26→22:26)
[2023-06-17] MEDS: GABAPENTIN 300 MG CAP PO SCH ×2 (13:26→22:26)
[2023-06-17] MEDS: HYDROcodone-ACET 5/325MG TAB PO PRN ×2 (17:11→22:29)
[2023-06-17] MEDS: ACCU-CHEK COMFORT CURVE STRIP VI SCH ×2 (17:17→22:25)
[2023-06-17] MEDS: InsuLIN REG 1unit/0.01ml Soln (100units/ml) SC SCH ×2 (17:17→22:44)
[2023-06-17 19:45] VITALS: PULSE 75; RESP 14; O2SAT 99
[2023-06-17] MEDS ORDERED: KETOROLAC TROMETH 30 MG/ML 1ML VIAL IV ONE (20:45)
[2023-06-18] VITALS (10 sets, daily range): BP systolic 86–171; BP diastolic 53–113; PULSE 57–91; RESP 12–20; TEMP 97.5–98.1; O2SAT 90–99
[2023-06-18] MEDS ORDERED: hydrALAZINE HCL 20 MG/ML VL IV PRN (00:30)
[2023-06-18] MEDS ORDERED: MORPHINE SULFATE INJ 2 MG/ml SYRG IV ONE (00:45)
[2023-06-18] MEDS: SODIUM CHLORIDE 0.9% 1,000 ML IV SCH ×3 (01:07→23:45)
[2023-06-18] MEDS: HYDROcodone-ACET 5/325MG TAB PO PRN ×2 (04:31→09:44)
[2023-06-18] MEDS: FERROUS SULFATE 50 MG PO SCH (05:12)
[2023-06-18 05:21] LABS: Alanine Aminotransferase 27 U/L (7-40); Alkaline Phosphatase 111 U/L (46-116); Anion Gap 4 (5-15); Aspartate Aminotransferase 24 U/L (13-40); BUN/Creatinine Ratio 20.3 (10.0-20.0); Bilirubin, Total 0.2 mg/dL (0.2-1.0); Blood Urea Nitrogen 36 mg/dL (9-23); Calcium 7.8 mg/dL (8.7-10.4); Carbon Dioxide 27 mmol/L (20-30); Chloride 106 mmol/L (98-107); Glucose 81 mg/dL (74-106); Potassium 5.3 mmol/L (3.5-5.1); Sodium 137 mmol/L (136-145)
[2023-06-18 05:32] LABS: Basophils # (auto) 0.1 10 ^3/uL (0-0.2); Basophils % (auto) 1.2 % (0.0-2.0); Eosinophils # (auto) 0.1 10 ^3/uL (0-0.8); Eosinophils % (auto) 1.9 % (0.0-7.0); Hematocrit 25.6 % (41.0-53.0); Hemoglobin 8.5 g/dL (13.5-17.5); Lymphocytes # (auto) 2.2 10 ^3/uL (0.4-5.4); Lymphocytes % (auto) 41.7 % (10.0-50.0); Mean Corpuscular Hemoglobin 27.5 pg (28.0-32.0); Mean Corpuscular Hgb Conc. 33.4 g/dL (32.0-36.0); Mean Corpuscular Volume 82.3 fL (80.0-100.0); Monocytes # (auto) 0.4 10 ^3/uL (0-1.3); Monocytes % (auto) 7.5 % (0.0-12.0); Neutrophils # (auto) 2.5 10 ^3/uL (1.6-8.6); Neutrophils % (auto) 47.7 % (37.0-80.0); Nucleated Red Blood Cells % 0.3 %; Red Blood Cells 3.11 10^6/uL (4.5-5.90); Red Cell Distribution Width 15.1 % (11.8-14.3); White Blood Cell 5.2 10^3/uL (4.4-10.8)
[2023-06-18] MEDS: ACCU-CHEK COMFORT CURVE STRIP VI SCH ×3 (06:09→22:18)
[2023-06-18] MEDS: InsuLIN REG 1unit/0.01ml Soln (100units/ml) SC SCH ×2 (06:10→22:27)
[2023-06-18] MEDS: GABAPENTIN 300 MG CAP PO SCH ×2 (06:12→22:17)
[2023-06-18] MEDS: PIPERACILLIN-TAZOB 3.375GM 100 ML IV SCH (06:16)
[2023-06-18] MEDS: QUEtiapine FUMARATE 100 MG TAB PO SCH (09:44)
[2023-06-18] MEDS ORDERED: ARIPIPRAZOLE 10 MG PO SCH (10:00)
[2023-06-18] MEDS ORDERED: CALCIUM GLUC 1,000mg/50ml-NS 50 ML IV ONE (10:45)
[2023-06-18 11:30] LABS: Hepatitis C Antibody Negative (Negative)
[2023-06-18 12:38] LABS: Hepatitis B Surface Antigen Negative (Negative)
[2023-06-18] MEDS ORDERED: DEXTROSE (50%) 50ML SYRG IV PRN (13:00)
[2023-06-18] MEDS ORDERED: FLUCONAZOLE 200MG/100ML 100 ML IV ONE (13:45)
[2023-06-18] MEDS ORDERED: ACETAMINOPHEN 325 MG TAB PO PRN (13:45)
[2023-06-18] MEDS ORDERED: ENOXAPARIN SOD 30 MG/0.3 ML SYRINGE SC ONE (16:15)
[2023-06-18] MEDS: ARIPIPRAZOLE 10 MG TABLET PO SCH (16:30)
[2023-06-18] MEDS ORDERED: ARIPIPRAZOLE 10 MG PO ONE (16:30)
[2023-06-18] MEDS ORDERED: InsuLIN REG 1unit/0.01ml Soln (100units/ml) SC SCH (17:00)
[2023-06-18] MEDS: HYDROcodone-ACET 10/325MG TAB PO PRN ×2 (17:23→23:23)
[2023-06-18 18:54] LABS: INR 1.07 (0.9-1.15); Partial Thromboplastin Time 35.7 SEC (24.5-34.5); Prothrombin Time 11.2 sec (9.3-11.8)
[2023-06-18 19:30] LABS: Erythrocyte Sedimentation Rate 68 mm/hr (0-20)
[2023-06-18] MEDS ORDERED: INSULIN LANTUS (GLARGINE) 1 /0.01ml (100units/ml) SC SCH (22:00)
[2023-06-18] MEDS ORDERED: CEFEPIME 2GM/50ML NS 50 ML IV SCH (22:00)
[2023-06-19] VITALS (9 sets, daily range): BP systolic 102–136; BP diastolic 59–88; PULSE 69–78; RESP 16–22; TEMP 97.9–98.2; O2SAT 97–99
[2023-06-19] MEDS: HYDROcodone-ACET 5/325MG TAB PO PRN ×3 (03:31→19:02)
[2023-06-19] MEDS: HYDROcodone-ACET 10/325MG TAB PO PRN (05:29)
[2023-06-19] MEDS: InsuLIN REG 1unit/0.01ml Soln (100units/ml) SC SCH ×5 (06:00→22:55)
[2023-06-19] MEDS: ACCU-CHEK COMFORT CURVE STRIP VI SCH ×4 (06:00→22:44)
[2023-06-19] MEDS: FERROUS SULFATE 50 MG PO SCH (06:43)
[2023-06-19] MEDS: QUEtiapine FUMARATE 100 MG TAB PO SCH (08:59)
[2023-06-19] MEDS: GABAPENTIN 300 MG CAP PO SCH ×2 (09:00→22:43)
[2023-06-19] MEDS ORDERED: FLUCONAZOLE 200MG/100ML 100 ML IV SCH (09:00)
[2023-06-19 09:05] LABS: Chloride 107 mmol/L (98-107); Potassium 5.1 mmol/L (3.5-5.1); Sodium 139 mmol/L (136-145)
[2023-06-19 09:06] LABS: Anion Gap 4 (5-15); Carbon Dioxide 28 mmol/L (20-30)
[2023-06-19] MEDS: OXYCODONE W/ ACETAMINOPHEN 5/325MG TABLET PO PRN ×3 (09:10→23:54)
[2023-06-19 09:11] LABS: BUN/Creatinine Ratio 22.6 (10.0-20.0); Blood Urea Nitrogen 37 mg/dL (9-23); Glucose 57 mg/dL (74-106)
[2023-06-19 09:15] LABS: Basophils # (auto) 0.1 10 ^3/uL (0-0.2); Basophils % (auto) 0.6 % (0.0-2.0); Eosinophils # (auto) 0.1 10 ^3/uL (0-0.8); Eosinophils % (auto) 1.1 % (0.0-7.0); Hematocrit 25.3 % (41.0-53.0); Hemoglobin 8.3 g/dL (13.5-17.5); Lymphocytes % (auto) 17.5 % (10.0-50.0); Mean Corpuscular Hemoglobin 27.6 pg (28.0-32.0); Mean Corpuscular Hgb Conc. 32.9 g/dL (32.0-36.0); Mean Corpuscular Volume 83.9 fL (80.0-100.0); Monocytes # (auto) 0.3 10 ^3/uL (0-1.3); Monocytes % (auto) 2.9 % (0.0-12.0); Neutrophils % (auto) 77.9 % (37.0-80.0); Red Blood Cells 3.01 10^6/uL (4.5-5.90); Red Cell Distribution Width 15.8 % (11.8-14.3); White Blood Cell 11.6 10^3/uL (4.4-10.8)
[2023-06-19 09:21] LABS: CRP High Sensitivity 2.37 mg/dL (<1.0)
[2023-06-19] MEDS: SODIUM CHLORIDE 0.9% 1,000 ML IV SCH ×2 (09:22→22:43)
[2023-06-19] MEDS: ARIPIPRAZOLE 10 MG TABLET PO SCH (09:28)
[2023-06-19 09:43] LABS: Magnesium 2.1 mg/dL (1.6-2.6)
[2023-06-19] MEDS ORDERED: PIPERACILLIN-TAZOB 3.375GM 100 ML IV ONE (09:45)
[2023-06-19] MEDS ORDERED: PIPERACILLIN-TAZOB 3.375GM 100 ML IV SCH (10:00)
[2023-06-19] MEDS ORDERED: PATIENTS OWN MEDICATION PO SCH (10:00)
[2023-06-19] MEDS ORDERED: ENOXAPARIN SOD 30 MG/0.3 ML SYRINGE SC SCH (10:00)
[2023-06-19 10:28] LABS: Erythrocyte Sedimentation Rate 92 mm/hr (0-20)
[2023-06-19] MEDS ORDERED: SODIUM CHLORIDE 0.9% 1,000 ML IV SCH (10:30)
[2023-06-19] MEDS ORDERED: MEROPENEM 1GM IVPB 100 ML IV SCH (14:00)
[2023-06-19] MEDS: PIPERACILLIN-TAZOB 3.375GM 100 ML IV SCH ×2 (14:00→22:43)
[2023-06-19 14:41] LABS: Basophils # (auto) 0.1 10 ^3/uL (0-0.2); Basophils % (auto) 0.6 % (0.0-2.0); Eosinophils # (auto) 0.1 10 ^3/uL (0-0.8); Monocytes # (auto) 0.3 10 ^3/uL (0-1.3)
[2023-06-19 14:43] LABS: Eosinophils % (auto) 1.1 % (0.0-7.0); Hematocrit 20.4 % (41.0-53.0); Lymphocytes # (auto) 2.1 10 ^3/uL (0.4-5.4); Mean Corpuscular Hgb Conc. 33.4 g/dL (32.0-36.0); Monocytes % (auto) 2.7 % (0.0-12.0); Neutrophils # (auto) 8.6 10 ^3/uL (1.6-8.6); Neutrophils % (auto) 76.6 % (37.0-80.0); Nucleated Red Blood Cells % 0.1 %; Red Blood Cells 2.43 10^6/uL (4.5-5.90); Red Cell Distribution Width 15.4 % (11.8-14.3); White Blood Cell 11.3 10^3/uL (4.4-10.8)
[2023-06-19 14:48] LABS: Chloride 109 mmol/L (98-107); Sodium 137 mmol/L (136-145)
[2023-06-19 14:49] LABS: Anion Gap 2 (5-15); Calcium 7.8 mg/dL (8.5-10.1); Carbon Dioxide 26 mmol/L (20-30); Hemoglobin 6.8 g/dL (13.5-17.5)
[2023-06-19 14:54] LABS: Blood Urea Nitrogen 29 mg/dL (9-23)
[2023-06-19 15:04] LABS: CRP High Sensitivity 2.55 mg/dL (<1.0)
[2023-06-19] MEDS ORDERED: PANTOPRAZOLE 40 MG/10 ML VIAL INJ IV ONE (15:15)
[2023-06-19 15:16] LABS: Glucose 257 mg/dL (74-106)
[2023-06-19 15:18] LABS: Potassium 6.2 mmol/L (3.5-5.1)
[2023-06-19 15:20] LABS: Erythrocyte Sedimentation Rate 76 mm/hr (0-20)
[2023-06-19 16:40] LABS: INR 1.1 (0.9-1.15); Partial Thromboplastin Time 41.9 SEC (24.5-34.5); Prothrombin Time 11.5 sec (9.3-11.8)
[2023-06-19 17:48] LABS: Alanine Aminotransferase 28 U/L (7-40); Albumin 3.1 g/dL (3.2-4.8); Alkaline Phosphatase 102 U/L (46-116); Anion Gap 1 (5-15); Aspartate Aminotransferase 31 U/L (13-40); BUN/Creatinine Ratio 15.8 (10.0-20.0); Bilirubin, Total 0.2 mg/dL (0.2-1.0); Blood Urea Nitrogen 29 mg/dL (9-23); Calcium 7.8 mg/dL (8.7-10.4); Carbon Dioxide 27 mmol/L (20-30); Chloride 108 mmol/L (98-107); Glucose 259 mg/dL (74-106); Sodium 136 mmol/L (136-145); Total Protein 5.9 g/dL (5.7-8.2)
[2023-06-19 18:21] LABS: Basophils # (auto) 0.1 10 ^3/uL (0-0.2); Eosinophils # (auto) 0.1 10 ^3/uL (0-0.8); Hemoglobin 7.6 g/dL (13.5-17.5); Neutrophils # (auto) 7.7 10 ^3/uL (1.6-8.6); Red Blood Cells 2.69 10^6/uL (4.5-5.90); Red Cell Distribution Width 15.5 % (11.8-14.3); White Blood Cell 10.1 10^3/uL (4.4-10.8)
[2023-06-19 18:23] LABS: Basophils % (auto) 0.9 % (0.0-2.0); Eosinophils % (auto) 1.4 % (0.0-7.0); Hematocrit 22.4 % (41.0-53.0); Lymphocytes % (auto) 19.5 % (10.0-50.0); Mean Corpuscular Hemoglobin 28.3 pg (28.0-32.0); Mean Corpuscular Volume 83.3 fL (80.0-100.0); Monocytes # (auto) 0.2 10 ^3/uL (0-1.3); Monocytes % (auto) 2.4 % (0.0-12.0); Neutrophils % (auto) 75.8 % (37.0-80.0); Nucleated Red Blood Cells % 0.1 %
[2023-06-19 18:32] LABS: Potassium 5.8 mmol/L (3.5-5.1)
[2023-06-19] MEDS ORDERED: FUROSEMIDE 40 MG/4 ML VIAL IV ONE (18:45)
[2023-06-19] MEDS ORDERED: SODIUM ZIRCONIUM CYCL 10 GM PAK PO ONE (18:45)
[2023-06-19] MEDS ORDERED: CALCIUM GLUC 1,000mg/50ml-NS 50 ML IV ONE (18:45)
[2023-06-19] MEDS: PANTOPRAZOLE 40 MG/10 ML VIAL INJ IV SCH (22:42)
[2023-06-19] MEDS: INSULIN LANTUS (GLARGINE) 1 /0.01ml (100units/ml) SC SCH (22:52)
[2023-06-19 23:15] LABS: Chloride 110 mmol/L (98-107); Potassium 5.2 mmol/L (3.5-5.1); Sodium 139 mmol/L (136-145)
[2023-06-19 23:16] LABS: Anion Gap 1 (5-15); Carbon Dioxide 28 mmol/L (20-30)
[2023-06-19 23:21] LABS: BUN/Creatinine Ratio 16.5 (10.0-20.0); Blood Urea Nitrogen 30 mg/dL (9-23); Glucose 167 mg/dL (74-106)
[2023-06-20] VITALS (7 sets, daily range): BP systolic 95–129; BP diastolic 58–91; PULSE 74–80; RESP 16–17; TEMP 98–98.9; O2SAT 98–100
[2023-06-20] MEDS: HYDROcodone-ACET 5/325MG TAB PO PRN ×2 (05:03→18:55)
[2023-06-20 06:11] LABS: Chloride 108 mmol/L (98-107); Sodium 137 mmol/L (136-145)
[2023-06-20 06:12] LABS: Anion Gap 3 (5-15); Calcium 8.4 mg/dL (8.7-10.4); Carbon Dioxide 26 mmol/L (20-30)
[2023-06-20] MEDS: GABAPENTIN 300 MG CAP PO SCH ×3 (06:14→22:09)
[2023-06-20] MEDS: PIPERACILLIN-TAZOB 3.375GM 100 ML IV SCH ×2 (06:14→14:28)
[2023-06-20 06:15] LABS: Basophils # (auto) 0.1 10 ^3/uL (0-0.2); Eosinophils # (auto) 0.1 10 ^3/uL (0-0.8); Lymphocytes # (auto) 1.4 10 ^3/uL (0.4-5.4); Monocytes # (auto) 0.3 10 ^3/uL (0-1.3)
[2023-06-20] MEDS: ACCU-CHEK COMFORT CURVE STRIP VI SCH ×3 (06:15→17:23)
[2023-06-20 06:17] LABS: BUN/Creatinine Ratio 15.2 (10.0-20.0); Blood Urea Nitrogen 28 mg/dL (9-23); Glucose 178 mg/dL (74-106)
[2023-06-20 06:18] LABS: Basophils % (auto) 0.8 % (0.0-2.0); Eosinophils % (auto) 1.5 % (0.0-7.0); Hematocrit 24.9 % (41.0-53.0); Hemoglobin 8.3 g/dL (13.5-17.5); Lymphocytes % (auto) 19.8 % (10.0-50.0); Magnesium 2.1 mg/dL (1.6-2.6); Mean Corpuscular Hemoglobin 28.2 pg (28.0-32.0); Mean Corpuscular Hgb Conc. 33.4 g/dL (32.0-36.0); Mean Corpuscular Volume 84.3 fL (80.0-100.0); Monocytes % (auto) 4.2 % (0.0-12.0); Neutrophils # (auto) 5.3 10 ^3/uL (1.6-8.6); Neutrophils % (auto) 73.7 % (37.0-80.0); Nucleated Red Blood Cells % 0.2 %; Red Blood Cells 2.96 10^6/uL (4.5-5.90); Red Cell Distribution Width 15.5 % (11.8-14.3); White Blood Cell 7.2 10^3/uL (4.4-10.8)
[2023-06-20] MEDS: InsuLIN REG 1unit/0.01ml Soln (100units/ml) SC SCH ×5 (06:23→22:00)
[2023-06-20] MEDS: OXYCODONE W/ ACETAMINOPHEN 5/325MG TABLET PO PRN ×3 (06:26→22:25)
[2023-06-20 06:40] LABS: CRP High Sensitivity 2.75 mg/dL (<1.0)
[2023-06-20 07:14] LABS: Erythrocyte Sedimentation Rate 84 mm/hr (0-20)
[2023-06-20] MEDS: FERROUS SULFATE 325mg EC TAB PO SCH (08:51)
[2023-06-20] MEDS: PANTOPRAZOLE 40 MG/10 ML VIAL INJ IV SCH ×2 (08:51→22:09)
[2023-06-20] MEDS: QUEtiapine FUMARATE 100 MG TAB PO SCH (08:51)
[2023-06-20] MEDS ORDERED: MIRT1TAB38 PO ×2 (09:35)
[2023-06-20] MEDS: ARIPIPRAZOLE 10 MG TABLET PO SCH (10:00)
[2023-06-20] MEDS: SODIUM CHLORIDE 0.9% 1,000 ML IV SCH ×2 (10:30→22:09)
[2023-06-20] MEDS ORDERED: FOSF3POW PO ×4 (20:37)
[2023-06-20] MEDS: MEROPENEM 1GM IVPB 100 ML IV SCH (22:08)
[2023-06-20] MEDS: INSULIN LANTUS (GLARGINE) 1 /0.01ml (100units/ml) SC SCH (22:22)
[2023-06-21] VITALS (7 sets, daily range): BP systolic 114–146; BP diastolic 74–90; PULSE 70–87; RESP 18–19; TEMP 97.4–98.5; O2SAT 98–100
[2023-06-21] MEDS: HYDROcodone-ACET 5/325MG TAB PO PRN ×2 (02:28→10:31)
[2023-06-21] MEDS: GABAPENTIN 300 MG CAP PO SCH ×3 (05:28→21:32)
[2023-06-21] MEDS: ACCU-CHEK COMFORT CURVE STRIP VI SCH ×5 (05:30→23:02)
[2023-06-21] MEDS: InsuLIN REG 1unit/0.01ml Soln (100units/ml) SC SCH ×6 (05:30→23:01)
[2023-06-21] MEDS: OXYCODONE W/ ACETAMINOPHEN 5/325MG TABLET PO PRN ×3 (06:19→23:22)
[2023-06-21 08:35] LABS: Basophils # (auto) 0.1 10 ^3/uL (0-0.2); Basophils % (auto) 0.8 % (0.0-2.0); Eosinophils # (auto) 0.1 10 ^3/uL (0-0.8); Eosinophils % (auto) 0.8 % (0.0-7.0); Hematocrit 27.4 % (41.0-53.0); Hemoglobin 8.9 g/dL (13.5-17.5); Lymphocytes # (auto) 1.7 10 ^3/uL (0.4-5.4); Lymphocytes % (auto) 20.3 % (10.0-50.0); Mean Corpuscular Hemoglobin 27.6 pg (28.0-32.0); Mean Corpuscular Hgb Conc. 32.6 g/dL (32.0-36.0); Mean Corpuscular Volume 84.8 fL (80.0-100.0); Monocytes # (auto) 0.4 10 ^3/uL (0-1.3); Monocytes % (auto) 4.9 % (0.0-12.0); Neutrophils # (auto) 6.1 10 ^3/uL (1.6-8.6); Neutrophils % (auto) 73.2 % (37.0-80.0); Nucleated Red Blood Cells % 0.1 %; Red Blood Cells 3.23 10^6/uL (4.5-5.90); Red Cell Distribution Width 15.5 % (11.8-14.3); White Blood Cell 8.3 10^3/uL (4.4-10.8)
[2023-06-21 08:39] LABS: Alanine Aminotransferase 24 U/L (7-40); Albumin 3.3 g/dL (3.2-4.8); Alkaline Phosphatase 88 U/L (46-116); Anion Gap 3 (5-15); Aspartate Aminotransferase 25 U/L (13-40); BUN/Creatinine Ratio 14.3 (10.0-20.0); Blood Urea Nitrogen 24 mg/dL (9-23); Calcium 8.2 mg/dL (8.5-10.1); Carbon Dioxide 25 mmol/L (20-30); Chloride 111 mmol/L (98-107); Cholesterol 122 mg/dL (< 200); Glucose 103 mg/dL (74-106); HDL Cholesterol 56 mg/dL (40-59); LDL Cholesterol 50 mg/dL (< 100); Potassium 5.3 mmol/L (3.5-5.1); Sodium 139 mmol/L (136-145); Triglycerides 23 mg/dL (< 150)
[2023-06-21 08:40] LABS: Bilirubin, Total 0.2 mg/dL (0.2-1.0); Total Protein 6.3 g/dL (5.7-8.2)
[2023-06-21 08:46] LABS: Thyroid Stimulating Hormone 3.18 uIU/mL (0.55-4.78)
[2023-06-21 08:48] LABS: CRP High Sensitivity 1.54 mg/dL (<1.0)
[2023-06-21 09:24] LABS: Erythrocyte Sedimentation Rate 87 mm/hr (0-20)
[2023-06-21 10:17] LABS: % Iron Saturation 24.7 % (20-55)
[2023-06-21] MEDS: FERROUS SULFATE 325mg EC TAB PO SCH (10:31)
[2023-06-21] MEDS: PANTOPRAZOLE 40 MG/10 ML VIAL INJ IV SCH ×2 (10:31→21:32)
[2023-06-21] MEDS: QUEtiapine FUMARATE 100 MG TAB PO SCH (10:31)
[2023-06-21] MEDS: ARIPIPRAZOLE 10 MG TABLET PO SCH (10:32)
[2023-06-21] MEDS ORDERED: INSULIN LANTUS (GLARGINE) 1 /0.01ml (100units/ml) SC SCH ×2 (12:00)
[2023-06-21 12:51] LABS: Folate (Folic Acid) 8.98 ng/mL (>5.38)
[2023-06-21] MEDS: SODIUM CHLORIDE 0.9% 1,000 ML IV SCH ×2 (14:23→23:03)
[2023-06-21] MEDS: MEROPENEM 1GM IVPB 100 ML IV SCH ×2 (14:23→21:31)
[2023-06-21] MEDS: SODIUM ZIRCONIUM CYCL 10 GM PAK PO SCH (16:11)
[2023-06-21] MEDS: ARIPIPRAZOLE 5MG TABLET PO SCH (21:32)
[2023-06-22] MEDS: HYDROcodone-ACET 5/325MG TAB PO PRN ×3 (01:51→15:23)
[2023-06-22 05:00] VITALS: BP 155/106; PULSE 83; RESP 18; TEMP 98.9; O2SAT 98
[2023-06-22] MEDS: GABAPENTIN 300 MG CAP PO SCH ×3 (05:02→22:17)
[2023-06-22] MEDS: InsuLIN REG 1unit/0.01ml Soln (100units/ml) SC SCH ×4 (05:03→23:50)
[2023-06-22] MEDS: ACCU-CHEK COMFORT CURVE STRIP VI SCH ×4 (05:04→23:48)
[2023-06-22 05:49] LABS: Basophils # (auto) 0.1 10 ^3/uL (0-0.2); Eosinophils # (auto) 0.1 10 ^3/uL (0-0.8); Hemoglobin 8.4 g/dL (13.5-17.5); Monocytes # (auto) 0.4 10 ^3/uL (0-1.3); Nucleated Red Blood Cells % 0.1 %
[2023-06-22 05:51] LABS: Eosinophils % (auto) 1.1 % (0.0-7.0); Hematocrit 25.4 % (41.0-53.0); Lymphocytes # (auto) 1.7 10 ^3/uL (0.4-5.4); Lymphocytes % (auto) 21.5 % (10.0-50.0); Mean Corpuscular Hemoglobin 27.7 pg (28.0-32.0); Mean Corpuscular Volume 83.9 fL (80.0-100.0); Monocytes % (auto) 4.5 % (0.0-12.0); Neutrophils # (auto) 5.8 10 ^3/uL (1.6-8.6); Neutrophils % (auto) 71.9 % (37.0-80.0); Red Blood Cells 3.03 10^6/uL (4.5-5.90); Red Cell Distribution Width 15.9 % (11.8-14.3)
[2023-06-22 06:03] LABS: Alanine Aminotransferase 38 U/L (7-40); Albumin 3.2 g/dL (3.2-4.8); Alkaline Phosphatase 95 U/L (46-116); Anion Gap 4 (5-15); Aspartate Aminotransferase 53 U/L (13-40); BUN/Creatinine Ratio 14.1 (10.0-20.0); Bilirubin, Total 0.3 mg/dL (0.2-1.0); Blood Urea Nitrogen 24 mg/dL (9-23); Calcium 8.4 mg/dL (8.5-10.1); Carbon Dioxide 24 mmol/L (20-30); Chloride 111 mmol/L (98-107); Glucose 184 mg/dL (74-106); Sodium 139 mmol/L (136-145); Total Protein 6.2 g/dL (5.7-8.2)
[2023-06-22 06:11] LABS: CRP High Sensitivity 1.31 mg/dL (<1.0)
[2023-06-22] MEDS: OXYCODONE W/ ACETAMINOPHEN 5/325MG TABLET PO PRN ×3 (06:34→19:48)
[2023-06-22 06:49] LABS: Erythrocyte Sedimentation Rate 94 mm/hr (0-20)
[2023-06-22 06:55] LABS: Potassium 5.8 mmol/L (3.5-5.1)
[2023-06-22 07:30] VITALS: PULSE 75
[2023-06-22] MEDS ORDERED: FUROSEMIDE 20 MG/2 ML VIAL IV ONE (08:30)
[2023-06-22] MEDS: SODIUM CHLORIDE 0.9% 1,000 ML IV SCH ×2 (08:45→18:27)
[2023-06-22 09:00] VITALS: BP 135/88; PULSE 80; RESP 14; TEMP 97.7; O2SAT 95
[2023-06-22] MEDS: QUEtiapine FUMARATE 100 MG TAB PO SCH (09:18)
[2023-06-22] MEDS: SODIUM ZIRCONIUM CYCL 10 GM PAK PO SCH ×4 (09:19→22:15)
[2023-06-22] MEDS: FERROUS SULFATE 325mg EC TAB PO SCH (09:19)
[2023-06-22] MEDS: PANTOPRAZOLE 40 MG/10 ML VIAL INJ IV SCH ×2 (09:19→22:15)
[2023-06-22] MEDS: MEROPENEM 1GM IVPB 100 ML IV SCH ×2 (10:11→22:15)
[2023-06-22 13:00] VITALS: BP 99/65; PULSE 72; RESP 14; TEMP 97.2; O2SAT 98
[2023-06-22 15:06] LABS: Vitamin D 25-Hydroxy 27 ng/mL (.); Vitamin D-2 25-Hydroxy 11 ng/mL (.); Vitamin D-3 25-Hydroxy 16 ng/mL (.)
[2023-06-22 20:00] VITALS: PULSE 91
[2023-06-22 22:00] VITALS: BP 132/84; PULSE 79; RESP 18; TEMP 97.7; O2SAT 98
[2023-06-22] MEDS: ARIPIPRAZOLE 5MG TABLET PO SCH (22:16)
[2023-06-23] VITALS (7 sets, daily range): BP systolic 126–148; BP diastolic 80–109; PULSE 18–86; RESP 16–18; TEMP 97.4–98.3; O2SAT 95–99
[2023-06-23] MEDS: HYDROcodone-ACET 5/325MG TAB PO PRN (00:58)
[2023-06-23] MEDS: OXYCODONE W/ ACETAMINOPHEN 5/325MG TABLET PO PRN (04:11)
[2023-06-23] MEDS: ACCU-CHEK COMFORT CURVE STRIP VI SCH ×3 (05:04→17:55)
[2023-06-23] MEDS: GABAPENTIN 300 MG CAP PO SCH ×3 (05:04→21:45)
[2023-06-23] MEDS: SODIUM ZIRCONIUM CYCL 10 GM PAK PO SCH ×3 (05:04→21:45)
[2023-06-23] MEDS: InsuLIN REG 1unit/0.01ml Soln (100units/ml) SC SCH ×3 (05:08→17:48)
[2023-06-23 05:49] LABS: Basophils # (auto) 0.1 10 ^3/uL (0-0.2); Eosinophils # (auto) 0.1 10 ^3/uL (0-0.8); Hematocrit 24.9 % (41.0-53.0); Hemoglobin 8.3 g/dL (13.5-17.5); Monocytes # (auto) 0.4 10 ^3/uL (0-1.3)
[2023-06-23 05:51] LABS: Basophils % (auto) 1.1 % (0.0-2.0); Eosinophils % (auto) 2.3 % (0.0-7.0); Lymphocytes # (auto) 1.4 10 ^3/uL (0.4-5.4); Lymphocytes % (auto) 22.5 % (10.0-50.0); Mean Corpuscular Hemoglobin 27.5 pg (28.0-32.0); Mean Corpuscular Hgb Conc. 33.1 g/dL (32.0-36.0); Mean Corpuscular Volume 83.1 fL (80.0-100.0); Monocytes % (auto) 5.9 % (0.0-12.0); Neutrophils # (auto) 4.4 10 ^3/uL (1.6-8.6); Neutrophils % (auto) 68.2 % (37.0-80.0); Red Cell Distribution Width 15.8 % (11.8-14.3); White Blood Cell 6.4 10^3/uL (4.4-10.8)
[2023-06-23 06:14] LABS: Alanine Aminotransferase 67 U/L (7-40); Alkaline Phosphatase 132 U/L (46-116); Anion Gap 4 (5-15); Aspartate Aminotransferase 80 U/L (13-40); BUN/Creatinine Ratio 17.2 (10.0-20.0); Bilirubin, Total 0.2 mg/dL (0.2-1.0); Blood Urea Nitrogen 28 mg/dL (9-23); Calcium 8.3 mg/dL (8.7-10.4); Carbon Dioxide 25 mmol/L (20-30); Chloride 110 mmol/L (98-107); Glucose 76 mg/dL (74-106); Potassium 4.9 mmol/L (3.5-5.1); Sodium 139 mmol/L (136-145); Total Protein 5.6 g/dL (5.7-8.2)
[2023-06-23] MEDS ORDERED: ONDANSETRON HCL 4 MG/2 ML VIAL IV PRN (07:15)
[2023-06-23 07:30] LABS: Erythrocyte Sedimentation Rate 95 mm/hr (0-20)
[2023-06-23] MEDS: SODIUM CHLORIDE 0.9% 1,000 ML IV SCH ×2 (08:00→14:40)
[2023-06-23] MEDS: MEROPENEM 1GM IVPB 100 ML IV SCH ×2 (08:19→21:45)
[2023-06-23] MEDS: PANTOPRAZOLE 40 MG/10 ML VIAL INJ IV SCH ×2 (08:24→21:45)
[2023-06-23] MEDS: QUEtiapine FUMARATE 100 MG TAB PO SCH (08:26)
[2023-06-23] MEDS: FERROUS SULFATE 325mg EC TAB PO SCH (08:26)
[2023-06-23] MEDS: traMADol HCL 50 MG TAB PO PRN ×2 (08:55→17:47)
[2023-06-23] MEDS: ARIPIPRAZOLE 5MG TABLET PO SCH (21:46)
[2023-06-24] VITALS (7 sets, daily range): BP systolic 113–145; BP diastolic 70–104; PULSE 76–88; RESP 14–20; TEMP 97.2–98.6; O2SAT 95–100
[2023-06-24] MEDS: ACCU-CHEK COMFORT CURVE STRIP VI SCH ×4 (00:30→17:33)
[2023-06-24] MEDS: InsuLIN REG 1unit/0.01ml Soln (100units/ml) SC SCH ×4 (00:31→17:35)
[2023-06-24] MEDS: SODIUM CHLORIDE 0.9% 1,000 ML IV SCH ×3 (00:37→20:45)
[2023-06-24] MEDS: traMADol HCL 50 MG TAB PO PRN ×3 (04:51→21:58)
[2023-06-24] MEDS: SODIUM ZIRCONIUM CYCL 10 GM PAK PO SCH ×3 (05:36→21:58)
[2023-06-24] MEDS: GABAPENTIN 300 MG CAP PO SCH ×3 (05:36→21:58)
[2023-06-24 06:20] LABS: Basophils # (auto) 0.1 10 ^3/uL (0-0.2); Eosinophils # (auto) 0.2 10 ^3/uL (0-0.8); Hemoglobin 9.3 g/dL (13.5-17.5); Monocytes # (auto) 0.4 10 ^3/uL (0-1.3); Nucleated Red Blood Cells % 0.1 %; Red Blood Cells 3.34 10^6/uL (4.5-5.90); Red Cell Distribution Width 15.8 % (11.8-14.3)
[2023-06-24 06:22] LABS: Basophils % (auto) 1.1 % (0.0-2.0); Eosinophils % (auto) 2.1 % (0.0-7.0); Hematocrit 27.9 % (41.0-53.0); Lymphocytes # (auto) 1.6 10 ^3/uL (0.4-5.4); Lymphocytes % (auto) 21.9 % (10.0-50.0); Mean Corpuscular Hemoglobin 27.7 pg (28.0-32.0); Mean Corpuscular Hgb Conc. 33.2 g/dL (32.0-36.0); Mean Corpuscular Volume 83.5 fL (80.0-100.0); Neutrophils % (auto) 68.9 % (37.0-80.0); White Blood Cell 7.3 10^3/uL (4.4-10.8)
[2023-06-24 06:45] LABS: Alanine Aminotransferase 56 U/L (7-40); Albumin 3.5 g/dL (3.2-4.8); Alkaline Phosphatase 138 U/L (46-116); Anion Gap 5 (5-15); Aspartate Aminotransferase 50 U/L (13-40); BUN/Creatinine Ratio 15.2 (10.0-20.0); Bilirubin, Total 0.3 mg/dL (0.2-1.0); Blood Urea Nitrogen 22 mg/dL (9-23); Calcium 8.5 mg/dL (8.7-10.4); Carbon Dioxide 26 mmol/L (20-30); Chloride 107 mmol/L (98-107); Glucose 153 mg/dL (74-106); Potassium 4.2 mmol/L (3.5-5.1); Sodium 138 mmol/L (136-145)
[2023-06-24 06:46] LABS: Total Protein 6.8 g/dL (5.7-8.2)
[2023-06-24 08:29] LABS: Erythrocyte Sedimentation Rate 90 mm/hr (0-20)
[2023-06-24] MEDS: QUEtiapine FUMARATE 100 MG TAB PO SCH (08:54)
[2023-06-24] MEDS: FERROUS SULFATE 325mg EC TAB PO SCH (08:54)
[2023-06-24] MEDS: MEROPENEM 1GM IVPB 100 ML IV SCH ×2 (08:54→21:59)
[2023-06-24] MEDS: PANTOPRAZOLE 40 MG/10 ML VIAL INJ IV SCH ×2 (08:55→21:59)
[2023-06-24 10:09] LABS: CRP High Sensitivity 0.65 mg/dL (<1.0)
[2023-06-24] MEDS: ARIPIPRAZOLE 5MG TABLET PO SCH (21:57)
[2023-06-25] VITALS (7 sets, daily range): BP systolic 101–150; BP diastolic 69–99; PULSE 73–89; RESP 16–18; TEMP 97.4–98.3; O2SAT 20–98
[2023-06-25] MEDS: ACCU-CHEK COMFORT CURVE STRIP VI SCH ×3 (00:18→11:51)
[2023-06-25] MEDS: InsuLIN REG 1unit/0.01ml Soln (100units/ml) SC SCH ×3 (00:21→11:52)
[2023-06-25] MEDS: GABAPENTIN 300 MG CAP PO SCH (05:11)
[2023-06-25] MEDS: SODIUM ZIRCONIUM CYCL 10 GM PAK PO SCH (05:11)
[2023-06-25] MEDS: traMADol HCL 50 MG TAB PO PRN (05:11)
[2023-06-25] MEDS: SODIUM CHLORIDE 0.9% 1,000 ML IV SCH (05:15)
[2023-06-25 05:46] LABS: Basophils # (auto) 0.1 10 ^3/uL (0-0.2); Basophils % (auto) 0.7 % (0.0-2.0); Eosinophils # (auto) 0.2 10 ^3/uL (0-0.8); Hematocrit 24.7 % (41.0-53.0); Hemoglobin 8.3 g/dL (13.5-17.5); Lymphocytes # (auto) 2.1 10 ^3/uL (0.4-5.4); Lymphocytes % (auto) 20.7 % (10.0-50.0); Mean Corpuscular Hemoglobin 27.8 pg (28.0-32.0); Mean Corpuscular Hgb Conc. 33.5 g/dL (32.0-36.0); Monocytes # (auto) 0.8 10 ^3/uL (0-1.3); Monocytes % (auto) 7.7 % (0.0-12.0); Neutrophils % (auto) 68.9 % (37.0-80.0); Red Blood Cells 2.97 10^6/uL (4.5-5.90); Red Cell Distribution Width 15.5 % (11.8-14.3); White Blood Cell 10.1 10^3/uL (4.4-10.8)
[2023-06-25 05:48] LABS: Chloride 109 mmol/L (98-107); Potassium 3.6 mmol/L (3.5-5.1); Sodium 140 mmol/L (136-145)
[2023-06-25 05:49] LABS: Anion Gap 5 (5-15); Calcium 8.2 mg/dL (8.5-10.1); Carbon Dioxide 26 mmol/L (20-30)
[2023-06-25 05:54] LABS: BUN/Creatinine Ratio 17.3 (10.0-20.0); Blood Urea Nitrogen 22 mg/dL (9-23); Glucose 103 mg/dL (74-106)
[2023-06-25 08:45] LABS: Alanine Aminotransferase 52 U/L (7-40); Alkaline Phosphatase 114 U/L (46-116); Aspartate Aminotransferase 49 U/L (13-40)
[2023-06-25 08:46] LABS: Albumin 3.1 g/dL (3.2-4.8); Bilirubin, Direct < 0.1 mg/dL (<0.3); Bilirubin, Total 0.3 mg/dL (0.2-1.0)
[2023-06-25] MEDS: MEROPENEM 1GM IVPB 100 ML IV SCH (10:27)
[2023-06-25] MEDS: FERROUS SULFATE 325mg EC TAB PO SCH (10:28)
[2023-06-25] MEDS: QUEtiapine FUMARATE 100 MG TAB PO SCH (10:28)
[2023-06-25] MEDS: PANTOPRAZOLE 40 MG/10 ML VIAL INJ IV SCH (10:28)
== END 2023-06-25 14:46 | disposition home or self-care (01) | DRG 466 ==
LOC: ER 04:32 → OVERFLOW 11:28 → CENTRAL 23:19 → TELE-CENTR 06-18 16:24
PROVIDERS: ADMIT Internal Medicine Geriatric Medicine; ATTEND Internal Medicine Geriatric Medicine
PROC: 0T2BX0Z Change Drainage Device in Bladder, External Approach (ICD-10-PCS; principal; 2023-06-19)
DX: T83.518A Infection and inflammatory reaction due to other urinary catheter, initial encounter (principal); N17.0 Acute kidney failure with tubular necrosis; J15.0 Pneumonia due to Klebsiella pneumoniae; E44.0 Moderate protein-calorie malnutrition; I13.0 Hypertensive heart and chronic kidney disease with heart failure and stage 1 through stage 4 chronic kidney disease, or unspecified chronic kidney disease; E11.22 Type 2 diabetes mellitus with diabetic chronic kidney disease; I50.32 Chronic diastolic (congestive) heart failure; Z93.59 Other cystostomy status; D64.9 Anemia, unspecified; E11.42 Type 2 diabetes mellitus with diabetic polyneuropathy; E11.43 Type 2 diabetes mellitus with diabetic autonomic (poly)neuropathy; R74.01 Elevation of levels of liver transaminase levels; E87.5 Hyperkalemia; E55.9 Vitamin D deficiency, unspecified; Y83.8 Other surgical procedures as the cause of abnormal reaction of the patient, or of later complication, without mention of misadventure at the time of the procedure; E86.9 Volume depletion, unspecified; N10 Acute pyelonephritis; N18.30 Chronic kidney disease, stage 3 unspecified; F32.A Depression, unspecified; N31.9 Neuromuscular dysfunction of bladder, unspecified; Z79.4 Long term (current) use of insulin; Z79.899 Other long term (current) drug therapy; Z83.3 Family history of diabetes mellitus; Z87.440 Personal history of urinary (tract) infections; Z68.1 Body mass index [BMI] 19.9 or less, adult; Y92.89 Other specified places as the place of occurrence of the external cause
CPT/HCPCS: 36415; 71045; 74176; 80048; 80053; 80061; 80076; 81001; 82306; 82607; 82746; 82962; 83540; 83550; 83615; 83690; 83735; 83880; 83930; 84443; 84484; 85025; 85045; 85610; 85652; 85730; 86141; 86803; 86850; 86900; 86901; 87081; 87086; 87088; 87186; 87340; C9113; G0378; J0692; J1450; J1815; J1885; J2185; J2405; J2543

== ENCOUNTER 2023-06-30 04:44 | Inpatient (IN) | payer MEDICAID ==
[~2023-06-30] VITALS: Ht 172.7 cm; Wt 51.0 kg
[~2023-06-30 04:44] MED LIST changes: -FLUC200T50 PO; -LEVO500T91 PO; +MIRT1TAB38 PO; -PERCOT PO
[2023-06-30 05:36] LABS: Urine Bacteria NONE SEEN /hpf (None Seen); Urine Blood 3+ /uL (Negative); Urine Clarity HAZY (Clear); Urine Color Red (Yellow); Urine Protein, UAD 3+ (Negative); Urine Specific Gravity 1.012 (1.001-1.035); Urine Urobilinogen Normal (Negative); Urine WBC 146 /hpf (0 - 3); Urine pH 6.5 (5.0-8.0)
[2023-06-30 06:43] LABS: Basophils # (auto) 0.1 10 ^3/uL (0-0.2); Basophils % (auto) 1.4 % (0.0-2.0); Eosinophils # (auto) 0.1 10 ^3/uL (0-0.8); Eosinophils % (auto) 1.2 % (0.0-7.0); Hematocrit 23.6 % (41.0-53.0); Hemoglobin 7.8 g/dL (13.5-17.5); Lymphocytes # (auto) 1.5 10 ^3/uL (0.4-5.4); Lymphocytes % (auto) 17.7 % (10.0-50.0); Mean Corpuscular Hemoglobin 27.8 pg (28.0-32.0); Mean Corpuscular Hgb Conc. 33.1 g/dL (32.0-36.0); Mean Corpuscular Volume 84.1 fL (80.0-100.0); Monocytes # (auto) 0.4 10 ^3/uL (0-1.3); Monocytes % (auto) 4.8 % (0.0-12.0); Neutrophils # (auto) 6.3 10 ^3/uL (1.6-8.6); Neutrophils % (auto) 74.9 % (37.0-80.0); Nucleated Red Blood Cells % 0.1 %; Red Blood Cells 2.81 10^6/uL (4.5-5.90); Red Cell Distribution Width 15.8 % (11.8-14.3); White Blood Cell 8.4 10^3/uL (4.4-10.8)
[2023-06-30 06:48] LABS: Alanine Aminotransferase 51 U/L (7-40); Albumin 3.3 g/dL (3.2-4.8); Alkaline Phosphatase 129 U/L (46-116); Aspartate Aminotransferase 34 U/L (13-40); Bilirubin, Total 0.4 mg/dL (0.2-1.0); Blood Urea Nitrogen 22 mg/dL (9-23); Calcium 8.2 mg/dL (8.5-10.1); Chloride 106 mmol/L (98-107); Potassium 5.4 mmol/L (3.5-5.1); Sodium 136 mmol/L (136-145); Total Protein 6.3 g/dL (5.7-8.2)
[2023-06-30 06:51] LABS: Glucose 341 mg/dL (74-106)
[2023-06-30 06:56] LABS: Anion Gap 5 (5-15); Carbon Dioxide 25 mmol/L (20-30)
[2023-06-30] MEDS ORDERED: CALCIUM GLUC 1,000mg/50ml-NS 50 ML IV ONE (08:15)
[2023-06-30] MEDS ORDERED: DEXTROSE (50%) 50ML SYRG IV ONE (08:15)
[2023-06-30] MEDS ORDERED: SODIUM CHLORIDE 0.9% 1,000 ML IV ONE (08:15)
[2023-06-30] MEDS ORDERED: SODIUM BICARBONATE 8.4% INJ 50ML SYRINGE IV ONE (08:15)
[2023-06-30] MEDS ORDERED: FUROSEMIDE 20 MG/2 ML VIAL IV ONE (08:15)
[2023-06-30] MEDS ORDERED: InsuLIN REG 1unit/0.01ml Soln (100units/ml) IV ONE (08:15)
[2023-06-30 08:55] VITALS: PULSE 88; RESP 13; O2SAT 99
[2023-06-30] MEDS ORDERED: DOCUSATE SOD 100 MG CAP PO PRN (09:15)
[2023-06-30] MEDS ORDERED: SODIUM CHLORIDE 0.9% 1,000 ML IV SCH (09:15)
[2023-06-30 09:54] LABS: Amphetamine Screen, Urine Neg (NEGATIVE)
[2023-06-30 09:55] LABS: Barbiturate Scree,Urine Neg (NEGATIVE); Benzodiazephine Screen, Urine Neg (NEGATIVE); Cannabinoid Screen, Urine Pos (NEGATIVE); Cocaine Screen, Urine Neg (NEGATIVE); Opiate Scree,Urine Neg (NEGATIVE); Phencyclidine Screen, Urine Neg (NEGATIVE)
[2023-06-30] MEDS ORDERED: levoFLOXacin 500MG 100 ML IV ONE (10:00)
[2023-06-30] MEDS: ONDANSETRON HCL 4 MG/2 ML VIAL IV PRN ×3 (10:29→22:47)
[2023-06-30] MEDS: QUEtiapine FUMARATE 100 MG TAB PO SCH (10:30)
[2023-06-30] MEDS: MORPHINE SULFATE INJ 2 MG/ml SYRG IV PRN ×3 (10:30→22:48)
[2023-06-30] MEDS: SODIUM CHLORIDE 0.9% 1,000 ML IV SCH (10:53)
[2023-06-30 11:03] LABS: Hematocrit 24.3 % (41.0-53.0); Hemoglobin 8.1 g/dL (13.5-17.5)
[2023-06-30] MEDS: GABAPENTIN 300 MG CAP PO SCH ×2 (14:23→22:06)
[2023-06-30] MEDS: MIRTAZAPINE 30 MG TAB PO SCH (18:06)
[2023-06-30 19:34] VITALS: PULSE 98; RESP 16; O2SAT 98
[2023-06-30] MEDS ORDERED: ERTAPENEM SOD INJ 1 GM in SODIUM CHL 0.9% 50 ML IV ONE (20:15)
[2023-06-30] MEDS ORDERED: ERTAPENEM SOD 1 GM INJ VIAL ONE (20:42)
[2023-07-01] VITALS (10 sets, daily range): BP systolic 127–176; BP diastolic 82–113; PULSE 81–97; RESP 10–18; TEMP 97.3–97.8; O2SAT 97–99
[2023-07-01] MEDS: SODIUM CHLORIDE 0.9% 1,000 ML IV SCH ×3 (00:05→21:20)
[2023-07-01 01:47] LABS: Hemoglobin 7.9 g/dL (13.5-17.5)
[2023-07-01 01:49] LABS: Hematocrit 23.3 % (41.0-53.0)
[2023-07-01] MEDS: ONDANSETRON HCL 4 MG/2 ML VIAL IV PRN ×2 (01:55→08:18)
[2023-07-01] MEDS: hydrALAZINE HCL 20 MG/ML VL IV PRN (01:55)
[2023-07-01] MEDS: MORPHINE SULFATE INJ 2 MG/ml SYRG IV PRN ×2 (03:30→08:18)
[2023-07-01] MEDS: GABAPENTIN 300 MG CAP PO SCH ×3 (06:30→21:14)
[2023-07-01 09:05] LABS: Basophils # (auto) 0.1 10 ^3/uL (0-0.2); Basophils % (auto) 1.5 % (0.0-2.0); Eosinophils # (auto) 0.1 10 ^3/uL (0-0.8); Eosinophils % (auto) 1.1 % (0.0-7.0); Hematocrit 33.9 % (41.0-53.0); Hemoglobin 11.2 g/dL (13.5-17.5); Lymphocytes # (auto) 1.9 10 ^3/uL (0.4-5.4); Lymphocytes % (auto) 22.3 % (10.0-50.0); Mean Corpuscular Volume 87.8 fL (80.0-100.0); Monocytes # (auto) 0.4 10 ^3/uL (0-1.3); Monocytes % (auto) 4.7 % (0.0-12.0); Neutrophils # (auto) 6.1 10 ^3/uL (1.6-8.6); Neutrophils % (auto) 70.4 % (37.0-80.0); Nucleated Red Blood Cells % 0.1 %; Red Blood Cells 3.86 10^6/uL (4.5-5.90); Red Cell Distribution Width 16.4 % (11.8-14.3); White Blood Cell 8.6 10^3/uL (4.4-10.8)
[2023-07-01 09:23] LABS: Alanine Aminotransferase 41 U/L (7-40); Albumin 3.1 g/dL (3.2-4.8); Alkaline Phosphatase 132 U/L (46-116); Anion Gap 7 (5-15); Aspartate Aminotransferase 38 U/L (13-40); Blood Urea Nitrogen 11 mg/dL (9-23); Calcium 8.4 mg/dL (8.5-10.1); Carbon Dioxide 22 mmol/L (20-30); Chloride 107 mmol/L (98-107); Potassium 5.1 mmol/L (3.5-5.1); Sodium 136 mmol/L (136-145)
[2023-07-01 09:24] LABS: Bilirubin, Total 0.5 mg/dL (0.2-1.0); Total Protein 6.4 g/dL (5.7-8.2)
[2023-07-01 09:26] LABS: Glucose 202 mg/dL (74-106)
[2023-07-01] MEDS ORDERED: levoFLOXacin 250MG 50 ML IV SCH (10:00)
[2023-07-01] MEDS ORDERED: PANTOPRAZOLE 40 MG/10 ML VIAL INJ IV SCH (10:00)
[2023-07-01] MEDS: ERTAPENEM SOD INJ 1 GM in SODIUM CHL 0.9% 50 ML IV SCH (10:10)
[2023-07-01] MEDS: QUEtiapine FUMARATE 100 MG TAB PO SCH (10:11)
[2023-07-01] MEDS ORDERED: PANTOPRAZOLE 40 MG TAB PO ONE (12:00)
[2023-07-01] MEDS ORDERED: DEXTROSE (50%) 50ML SYRG IV PRN (12:15)
[2023-07-01] MEDS: HYDROcodone-ACET 5/325MG TAB PO PRN (12:48)
[2023-07-01] MEDS: ACCU-CHEK COMFORT CURVE STRIP VI SCH ×2 (16:51→21:14)
[2023-07-01] MEDS: InsuLIN REG 1unit/0.01ml Soln (100units/ml) SC SCH ×2 (16:53→23:45)
[2023-07-01] MEDS: MIRTAZAPINE 30 MG TAB PO SCH (18:49)
[2023-07-02] VITALS (7 sets, daily range): BP systolic 100–159; BP diastolic 64–114; PULSE 70–92; RESP 16–17; TEMP 97.4–98.6; O2SAT 97–99
[2023-07-02] MEDS: HYDROcodone-ACET 5/325MG TAB PO PRN ×3 (00:48→22:51)
[2023-07-02] MEDS ORDERED: HYDROcodone-ACET 5/325MG TAB PO ONE ×2 (01:00→22:45)
[2023-07-02] MEDS: GABAPENTIN 300 MG CAP PO SCH ×3 (05:17→22:07)
[2023-07-02] MEDS: ONDANSETRON HCL 4 MG/2 ML VIAL IV PRN (05:18)
[2023-07-02 06:06] LABS: Basophils # (auto) 0.1 10 ^3/uL (0-0.2); Basophils % (auto) 1.9 % (0.0-2.0); Eosinophils # (auto) 0.1 10 ^3/uL (0-0.8); Eosinophils % (auto) 1.2 % (0.0-7.0); Hematocrit 29.4 % (41.0-53.0); Hemoglobin 9.9 g/dL (13.5-17.5); Lymphocytes # (auto) 1.6 10 ^3/uL (0.4-5.4); Lymphocytes % (auto) 19.8 % (10.0-50.0); Mean Corpuscular Hemoglobin 28.5 pg (28.0-32.0); Mean Corpuscular Hgb Conc. 33.7 g/dL (32.0-36.0); Mean Corpuscular Volume 84.5 fL (80.0-100.0); Monocytes # (auto) 0.3 10 ^3/uL (0-1.3); Monocytes % (auto) 4.2 % (0.0-12.0); Neutrophils # (auto) 5.9 10 ^3/uL (1.6-8.6); Neutrophils % (auto) 72.9 % (37.0-80.0); Nucleated Red Blood Cells % 0.1 %; Red Blood Cells 3.47 10^6/uL (4.5-5.90); Red Cell Distribution Width 16.1 % (11.8-14.3); White Blood Cell 8.1 10^3/uL (4.4-10.8)
[2023-07-02 06:15] LABS: Chloride 107 mmol/L (98-107); Potassium 4.4 mmol/L (3.5-5.1); Sodium 138 mmol/L (136-145)
[2023-07-02 06:16] LABS: Anion Gap 4 (5-15); Calcium 8.3 mg/dL (8.5-10.1); Carbon Dioxide 27 mmol/L (20-30)
[2023-07-02 06:21] LABS: BUN/Creatinine Ratio 14.5 (10.0-20.0); Blood Urea Nitrogen 20 mg/dL (9-23); Glucose 153 mg/dL (74-106)
[2023-07-02] MEDS: INSULIN LANTUS (GLARGINE) 1 /0.01ml (100units/ml) SC SCH (07:15)
[2023-07-02] MEDS: InsuLIN REG 1unit/0.01ml Soln (100units/ml) SC SCH ×4 (07:51→22:00)
[2023-07-02] MEDS: ACCU-CHEK COMFORT CURVE STRIP VI SCH ×4 (07:52→22:06)
[2023-07-02] MEDS: QUEtiapine FUMARATE 100 MG TAB PO SCH (09:58)
[2023-07-02] MEDS: ERTAPENEM SOD INJ 1 GM in SODIUM CHL 0.9% 50 ML IV SCH (09:58)
[2023-07-02] MEDS: PANTOPRAZOLE 40 MG TAB PO SCH (09:58)
[2023-07-02] MEDS: hydrALAZINE HCL 20 MG/ML VL IV PRN (10:18)
[2023-07-02] MEDS ORDERED: MORPHINE SULFATE INJ 2 MG/ml SYRG IV ONE (10:45)
[2023-07-02] MEDS ORDERED: FLUCONAZOLE 200MG/100ML 100 ML IV ONE (12:15)
[2023-07-02 12:29] LABS: INR 1.18 (0.9-1.15); Prothrombin Time 12.3 sec (9.3-11.8)
[2023-07-02] MEDS: MIRTAZAPINE 30 MG TAB PO SCH (17:54)
[2023-07-03 05:00] VITALS: BP 151/103; PULSE 80; RESP 17; TEMP 98; O2SAT 97
[2023-07-03] MEDS: ONDANSETRON HCL 4 MG/2 ML VIAL IV PRN (05:13)
[2023-07-03] MEDS: GABAPENTIN 300 MG CAP PO SCH ×2 (05:13→14:00)
[2023-07-03] MEDS: InsuLIN REG 1unit/0.01ml Soln (100units/ml) SC SCH ×2 (05:19→11:30)
[2023-07-03] MEDS: ACCU-CHEK COMFORT CURVE STRIP VI SCH ×2 (05:19→13:00)
[2023-07-03 05:54] LABS: Basophils # (auto) 0.1 10 ^3/uL (0-0.2); Basophils % (auto) 0.9 % (0.0-2.0); Eosinophils # (auto) 0.1 10 ^3/uL (0-0.8); Eosinophils % (auto) 1.5 % (0.0-7.0); Hematocrit 31.7 % (41.0-53.0); Hemoglobin 10.7 g/dL (13.5-17.5); Lymphocytes # (auto) 2.5 10 ^3/uL (0.4-5.4); Lymphocytes % (auto) 25.3 % (10.0-50.0); Mean Corpuscular Hemoglobin 28.4 pg (28.0-32.0); Mean Corpuscular Hgb Conc. 33.9 g/dL (32.0-36.0); Mean Corpuscular Volume 83.8 fL (80.0-100.0); Monocytes # (auto) 0.5 10 ^3/uL (0-1.3); Monocytes % (auto) 4.9 % (0.0-12.0); Neutrophils # (auto) 6.6 10 ^3/uL (1.6-8.6); Neutrophils % (auto) 67.4 % (37.0-80.0); Red Blood Cells 3.78 10^6/uL (4.5-5.90); Red Cell Distribution Width 16.1 % (11.8-14.3); White Blood Cell 9.7 10^3/uL (4.4-10.8)
[2023-07-03 06:04] LABS: Anion Gap 5 (5-15); Carbon Dioxide 27 mmol/L (20-30); Chloride 107 mmol/L (98-107); Potassium 4.7 mmol/L (3.5-5.1); Sodium 139 mmol/L (136-145)
[2023-07-03 06:05] LABS: Calcium 8.5 mg/dL (8.5-10.1)
[2023-07-03 06:09] LABS: Glucose 64 mg/dL (74-106)
[2023-07-03 06:10] LABS: BUN/Creatinine Ratio 13.3 (10.0-20.0); Blood Urea Nitrogen 22 mg/dL (9-23)
[2023-07-03] MEDS: INSULIN LANTUS (GLARGINE) 1 /0.01ml (100units/ml) SC SCH (06:46)
[2023-07-03] MEDS: HYDROcodone-ACET 5/325MG TAB PO PRN (06:53)
[2023-07-03 09:00] VITALS: BP 130/91; PULSE 79; RESP 17; TEMP 97.6; O2SAT 98
[2023-07-03] MEDS ORDERED: FLUC200T50 PO (09:54)
[2023-07-03] MEDS ORDERED: FLUCONAZOLE 200MG/100ML 100 ML IV SCH (10:00)
[2023-07-03] MEDS: PANTOPRAZOLE 40 MG TAB PO SCH (10:38)
[2023-07-03] MEDS: QUEtiapine FUMARATE 100 MG TAB PO SCH (10:38)
[2023-07-03] MEDS: ERTAPENEM SOD INJ 1 GM in SODIUM CHL 0.9% 50 ML IV SCH (12:58)
[2023-07-03 13:00] VITALS: BP 121/87; PULSE 75; RESP 18; TEMP 97.4; O2SAT 100
== END 2023-07-03 14:30 | disposition home or self-care (01) | DRG 466 ==
LOC: ER 04:44 → OVERFLOW 09:31 → EAST 07-01 15:41
PROVIDERS: ADMIT Internal Medicine Pulmonary Disease; ATTEND Student in an Organized Health Care Education/Training Program
PROC: 30233N1 Transfusion of Nonautologous Red Blood Cells into Peripheral Vein, Percutaneous Approach (ICD-10-PCS; principal; 2023-07-01)
DX: T83.511A Infection and inflammatory reaction due to indwelling urethral catheter, initial encounter (principal); N17.0 Acute kidney failure with tubular necrosis; I13.0 Hypertensive heart and chronic kidney disease with heart failure and stage 1 through stage 4 chronic kidney disease, or unspecified chronic kidney disease; D62 Acute posthemorrhagic anemia; E10.42 Type 1 diabetes mellitus with diabetic polyneuropathy; I50.32 Chronic diastolic (congestive) heart failure; E10.21 Type 1 diabetes mellitus with diabetic nephropathy; N30.01 Acute cystitis with hematuria; E10.22 Type 1 diabetes mellitus with diabetic chronic kidney disease; E87.5 Hyperkalemia; F12.10 Cannabis abuse, uncomplicated; F32.A Depression, unspecified; N31.9 Neuromuscular dysfunction of bladder, unspecified; N18.31 Chronic kidney disease, stage 3a; F15.90 Other stimulant use, unspecified, uncomplicated; Z87.891 Personal history of nicotine dependence; Z83.3 Family history of diabetes mellitus; Z86.19 Personal history of other infectious and parasitic diseases; Z79.899 Other long term (current) drug therapy; Z79.4 Long term (current) use of insulin; E11.65 Type 2 diabetes mellitus with hyperglycemia
CPT/HCPCS: 36415; 74176; 76775; 80048; 80053; 80307; 81001; 82010; 82306; 82962; 83970; 84100; 84132; 85014; 85018; 85025; 85610; 86850; 86900; 86901; 86920; 87081; 87086; 87088; 96365; 96368; 96375; C9113; G0378; J1335; J1450; J1815; J1956; J2405

== ENCOUNTER 2023-08-30 08:02 | Emergency (ER) | payer MEDICAID ==
[~2023-08-30] VITALS: Ht 175.3 cm; Wt 49.6 kg
[~2023-08-30 08:02] MED LIST changes: +FLUC200T50 PO
[2023-08-30] MEDS ORDERED: ONDANSETRON HCL 4 MG/2 ML VIAL IV ONE (08:30)
[2023-08-30] MEDS ORDERED: SODIUM CHLORIDE 0.9% 500 ML IVB ONE (08:30)
[2023-08-30 08:40] LABS: Urine Bacteria FEW /hpf (None Seen); Urine Blood 2+ /uL (Negative); Urine Budding Yeast FEW /hpf (None Seen); Urine Clarity HAZY (Clear); Urine Color Colorless (Yellow); Urine Hyaline Cast FEW /lpf (0 - 2); Urine Protein, UAD 3+ (Negative); Urine Specific Gravity 1.014 (1.001-1.035); Urine Urobilinogen Normal (Negative); Urine WBC 79 /hpf (0 - 3); Urine WBC Clumps PRESENT /hpf (None Seen)
[2023-08-30 08:42] VITALS: BP 105/73; PULSE 91; RESP 16; TEMP 97.8; O2SAT 95
[2023-08-30 08:43] LABS: Basophils # (auto) 0 10 ^3/uL (0-0.2); Basophils % (auto) 0.7 % (0.0-2.0); Eosinophils # (auto) 0.2 10 ^3/uL (0-0.8); Eosinophils % (auto) 2.2 % (0.0-7.0); Hematocrit 29.1 % (41.0-53.0); Hemoglobin 9.5 g/dL (13.5-17.5); Lymphocytes # (auto) 1.7 10 ^3/uL (0.4-5.4); Lymphocytes % (auto) 23.1 % (10.0-50.0); Mean Corpuscular Hemoglobin 28.3 pg (28.0-32.0); Mean Corpuscular Hgb Conc. 32.8 g/dL (32.0-36.0); Mean Corpuscular Volume 86.2 fL (80.0-100.0); Monocytes # (auto) 0.5 10 ^3/uL (0-1.3); Monocytes % (auto) 6.8 % (0.0-12.0); Neutrophils # (auto) 4.8 10 ^3/uL (1.6-8.6); Neutrophils % (auto) 67.2 % (37.0-80.0); Red Blood Cells 3.37 10^6/uL (4.5-5.90); Red Cell Distribution Width 15.8 % (11.8-14.3); White Blood Cell 7.1 10^3/uL (4.4-10.8)
[2023-08-30 09:11] LABS: Alanine Aminotransferase 26 U/L (7-40); Albumin 3.2 g/dL (3.2-4.8); Alkaline Phosphatase 172 U/L (46-116); Anion Gap 4 (5-15); Aspartate Aminotransferase 21 U/L (13-40); BUN/Creatinine Ratio 19.6 (10.0-20.0); Bilirubin, Total 0.5 mg/dL (0.2-1.0); Blood Urea Nitrogen 27 mg/dL (9-23); Calcium 8.7 mg/dL (8.5-10.1); Carbon Dioxide 22 mmol/L (20-30); Chloride 109 mmol/L (98-107); Glucose 233 mg/dL (74-106); Potassium 4.6 mmol/L (3.5-5.1); Sodium 135 mmol/L (136-145); Total Protein 6.1 g/dL (5.7-8.2)
[2023-08-30] MEDS ORDERED: HYDROcodone-ACET 10/325MG TAB PO ONE (09:30)
[2023-08-30] MEDS ORDERED: CIPR-173 PO (09:52)
[2023-08-30] MEDS ORDERED: ZOFR4T PO (09:53)
[2023-08-30] MEDS ORDERED: cefTRIAXone 1GM/50ML D5W 50 ML IV ONE (10:00)
== END 2023-08-30 10:25 | disposition home or self-care (01) ==
LOC: ER 08:02
DX: N39.0 Urinary tract infection, site not specified (principal); I13.0 Hypertensive heart and chronic kidney disease with heart failure and stage 1 through stage 4 chronic kidney disease, or unspecified chronic kidney disease; E11.22 Type 2 diabetes mellitus with diabetic chronic kidney disease; N18.9 Chronic kidney disease, unspecified; I50.9 Heart failure, unspecified; Z79.2 Long term (current) use of antibiotics; Z79.4 Long term (current) use of insulin; Z79.899 Other long term (current) drug therapy
CPT/HCPCS: 36415; 80053; 81001; 85025; 96361; 96365; 96375; 99284; J0696; J2405; J7040